=== PATIENT | male | born 1965 | race Caucasian/White ===

== ENCOUNTER → 2023-10-30 08:52 | Outpatient (REF) | payer MEDICARE, MEDICAID, SELFPAY ==
[2023-10-30 09:52] LABS: Blood Urea Nitrogen 48 mg/dl (9-20); Calcium 9.2 mg/dl (8.4-10.2); Carbon Dioxide 24 mmol/L (22-30); Chloride 105 mmol/L (98-107); Glucose 96 mg/dl (70-99); Sodium 140 mmol/L (135-145); eGFR 27.89
== END ==
LOC: REG 08:52
PROVIDERS: ATTENDING PHYSICIAN Specialist; FAMILY PHYSICIAN Family Medicine
DX: N17.9 Acute kidney failure, unspecified (principal)
CPT/HCPCS: 36415; 80048

== ENCOUNTER → 2023-11-06 08:47 | Outpatient (REF) | payer MEDICARE, MEDICAID, SELFPAY ==
[2023-11-06 10:55] LABS: Blood Urea Nitrogen 38 mg/dl (9-20); Calcium 9.4 mg/dl (8.4-10.2); Carbon Dioxide 22 mmol/L (22-30); Chloride 105 mmol/L (98-107); Glucose 104 mg/dl (70-99); Potassium 4.7 mmol/L (3.5-5.1); Sodium 140 mmol/L (135-145); eGFR 26.66
== END ==
LOC: REG 08:47
PROVIDERS: ATTENDING PHYSICIAN Specialist
DX: N26.1 Atrophy of kidney (terminal) (principal)
CPT/HCPCS: 36415; 80048

== ENCOUNTER 2023-11-08 06:00 | Inpatient (IN) | payer MEDICARE, MEDICAID, SELFPAY ==
[2023-11-08] VITALS (15 sets, daily range): BP systolic 105–151; BP diastolic 52–86; PULSE 106; O2SAT 99; BMI 32.5; BMI 34.6
--- NOTE | 2023-11-08 04:10 | ED.GENMED ---
History of Present Illness
<KELVIN Waggoner - Last Filed: 11/08/23 04:30>
General
Chief Complaint: Fever
Source: patient and family
Exam Limitations: none
Time Seen by Provider: 11/08/23 03:29
Nursing documentation reviewed up to this point in time: agreed with
Travel History
Have you had any contact with someone who has COVID-19?: No
Do you have any symptoms of coronavirus? Fever > 100 degrees, chills, cough, shortness of breath, sore throat, loss of taste or smell, muscle aches, or headache?: Yes
Symptoms:: fever, nausea
History of Present Illness
History of Present Illness:
This is a 58 year old male, with a PMH of nephrostomy tubes, who reports to the ED with his father c/o fever x 6 hours. Pt was discharged from the hospital 1 week ago and has been doing fine up until yesterday. Pt's father states patient began
feeling nauseous and bloated yesterday. He has had a lack of appetite and states he feels nauseous every time he tries to eat. Pt's father gave him 3 doses of 'gentle overnight laxative' and pt thereafter had diarrhea 3 times. Pt's father took his
temperature a couple hours ago and got a temperature of 103F. Pt denies any CP, SOB, cough, vomiting, abd pain, hematuria, GORMAN, dizziness, lightheadedness, or swelling in his legs.
Past History
<KELVIN Waggoner - Last Filed: 11/08/23 04:30>
Past History
ED Past Medical History: HTN, Hypercholesterolemia, IDDM and Other (Kidney stones, hypothyroidism, nephrostomy tubes)
ED Past Surgical History: Urological (nephrostomy tube placement)
Patient has exhibited threatening behavior?: No
Social History
Tobacco: Non-smoker
Alcohol: None
Drug: None
Review of Systems
<KELVIN Waggoner - Last Filed: 11/08/23 04:30>
Review of Systems
Allergies reviewed?: Yes
Other source history: family
Constitutional: Reports fever and chills
EENT: Reports no symptoms
Respiratory: Reports no symptoms; Denies cough or trouble breathing
Cardiac: Reports no symptoms; Denies chest pain
ABD/GI: Reports nausea, diarrhea and other (bloated); Denies abdominal pain, vomiting or constipated
: Reports no symptoms; Denies dysuria, flank pain or bleeding
Musculoskeletal: Reports no symptoms
Skin: Reports no symptoms
Neurological: Reports no symptoms; Denies dizzy or headache
Phy Exam
<Av Moran [facility] - Last Filed: 11/08/23 04:30>
General Physical Exam
General Presentation: no apparent distress
General age: appears stated age
General Skin: warm and dry
General Habitus: normal
General Mental: alert
General Hydration: appears well hydrated
ENT Exam
ENT Exam: pharynx normal, neck supple and normocephalic
Cardiovascular Exam
Cardiovascular Exam: regular rate/rhythm, no edema, no murmur and normal peripheral pulses
Heart Sounds: normal
Pulmonary Exam
Pulmonary Exam: lungs clear, no respiratory distress, no rales, no crackles, no rhonchi, no wheezing and no cough
Oxygen Status: room air
Cough: no cough
Gastrointestinal Exam
Gastrointestinal Exam: non tender, soft and abnormal bowel sounds (hyperactive)
External Findings: nephrostomy drain
Palpation: generalized: No tenderness
Auscultation of Abdomen: hyperactive
Neurological Exam
Neurological Exam: alert and oriented x3
Musculoskeletal Exam
Musculoskeletal Exam: full ROM and no edema
Skin Exam
Skin Exam: normal color, warm/dry, no rash and other (no erythema or warmth along surgical sites. no tenderness to palpation along surgical sites.)
Psychiatric Exam
Psychiatric Exam: normal mood/affect
Course
<Av Gardnerisaiah NATHAN - Last Filed: 11/08/23 04:30>
Orders/Labs/Results
Orders:
Orders
11/08/23 04:05
Complete Blood Count/With Diff Urgent
Comprehensive Metabolic Panel Urgent
Lactic Acid Q4H
Comment: ON ICE, CANCEL 2ND ORDER IF FIRST LACTIC ACID LEVEL <2
Urinalysis Reflex To Culture Urgent
Date Specimen was Collected: 11/08/23
Time Specimen was Collected: 03:34
Urine Microscopic Reflex Cult Urgent
Blood Culture Q30M
EDISON Source: Blood/Venous
Specimen Description:
Comment: FROM 2 SEPARATE SITES
Urine Culture Urgent
EDISON Source: U
Specimen Description:
Date Specimen was Collected: 11/08/23
Time Specimen was Collected: 03:34
11/08/23 04:09
Blood Culture Q30M
EDISON Source: Blood/Venous
Specimen Description:
Comment: FROM 2 SEPARATE SITES
11/08/23 04:13
Acetaminophen [Tylenol] 1,000 mg .ROUTE .STK-MED ONE
11/08/23 04:15
Acetaminophen [Tylenol] 1,000 mg PO NOW STA
11/08/23 04:32
0.9% Sodium Chloride 1000 ml [Nss] 1,000 ml IV BOLUS
11/08/23 04:33
CT Abd/pel Without Iv Or Oral Urgent
Comment:
Reason For Exam: Fever, Kidney sones Perc
11/08/23 04:51
Cefepime HCl [Maxipime] 2,000 mg IV NOW STA
Gentamicin Sulfate [Gentamicin] 190 mg 0.9% Sodium Chloride [Nss] 50 ml IV NOW
11/08/23 07:45
Lactic Acid Q4H
Comment: ON ICE, CANCEL 2ND ORDER IF FIRST LACTIC ACID LEVEL <2
Abnormal Lab Results
11/08/23
04:05
WBC 18.1 H 10^3/uL
(4.8-10.8)
RBC 2.94 L 10^6/uL
(4.70-6.10)
Hgb 8.3 L g/dL
(13.0-18.0)
Hct 24.1 L %
(39.0-52.0)
RDW 15.0 H %
(11.5-14.5)
Abs Immat Gran (auto) 0.2 H 10^3/uL
(0-0.05)
Absolute Neuts (auto) 15.0 H 10^3/uL
(1.4-6.5)
Absolute Lymphs (auto) 0.6 L 10^3/uL
(1.2-3.4)
Absolute Monos (auto) 2.2 H 10^3/uL
(0.1-0.6)
Immature Gran % 0.8 H %
(0-0.5)
Neutrophils % 83.0 H %
(42.2-75.2)
Lymphocytes % 3.5 L %
(20.5-51.1)
Monocytes % 12.1 H %
(1.7-9.3)
Sodium 130 L D mmol/L
(135-145)
Carbon Dioxide 18 L mmol/L
(22-30)
BUN 43 H mg/dl
(9-20)
Creatinine 3.5 H mg/dL
(0.7-1.3)
Glucose 130 H mg/dl
(70-99)
Total Bilirubin 1.4 H mg/dl
(0.2-1.3)
Total Protein 6.2 L g/dl
(6.3-8.2)
Albumin 3.3 L g/dl
(3.5-5.0)
Ur Occult Blood Reflex 3+ A
(Negative)
Leukocyte Esterase Rfl 2+ A
(Negative)
Urine Albumin (Reflex) 2+ A
(Neg - Trace)
11/08/23 04:05
11/08/23 04:05
Vital Signs
Initial and Last Documented VS:
Initial Vital Signs
Temp Pulse Resp BP Pulse Ox
101.2 F H 129 24 144/83 99
11/08/23 03:14 11/08/23 03:14 11/08/23 03:14 11/08/23 03:14 11/08/23 03:14
Last Documented Vital Signs
Temp Pulse Resp BP Pulse Ox
102.7 F H 107 20 125/59 96
11/08/23 04:27 11/08/23 04:27 11/08/23 04:27 11/08/23 04:27 11/08/23 04:27
<Nakul Smith, DO - Last Filed: 11/08/23 04:59>
Orders/Labs/Results
Orders:
Orders
11/08/23 04:05
Complete Blood Count/With Diff Urgent
Comprehensive Metabolic Panel Urgent
Lactic Acid Q4H
Comment: ON ICE, CANCEL 2ND ORDER IF FIRST LACTIC ACID LEVEL <2
Urinalysis Reflex To Culture Urgent
Date Specimen was Collected: 11/08/23
Time Specimen was Collected: 03:34
Urine Microscopic Reflex Cult Urgent
Blood Culture Q30M
EDISON Source: Blood/Venous
Specimen Description:
Comment: FROM 2 SEPARATE SITES
Urine Culture Urgent
EDISON Source: U
Specimen Description:
Date Specimen was Collected: 11/08/23
Time Specimen was Collected: 03:34
11/08/23 04:09
Blood Culture Q30M
EDISON Source: Blood/Venous
Specimen Description:
Comment: FROM 2 SEPARATE SITES
02/09/24 04:13
Acetaminophen [Tylenol] 1,000 mg .ROUTE .STK-MED ONE
11/08/23 04:15
Acetaminophen [Tylenol] 1,000 mg PO NOW STA
11/08/23 04:32
0.9% Sodium Chloride 1000 ml [Nss] 1,000 ml IV BOLUS
11/08/23 04:33
CT Abd/pel Without Iv Or Oral Urgent
Comment:
Reason For Exam: Fever, Kidney sones Perc
11/08/23 04:51
Cefepime HCl [Maxipime] 2,000 mg IV NOW STA
Gentamicin Sulfate [Gentamicin] 190 mg 0.9% Sodium Chloride [Nss] 50 ml IV NOW
11/08/23 07:45
Lactic Acid Q4H
Comment: ON ICE, CANCEL 2ND ORDER IF FIRST LACTIC ACID LEVEL <2
Abnormal Lab Results
11/08/23
04:05
WBC 18.1 H 10^3/uL
(4.8-10.8)
RBC 2.94 L 10^6/uL
(4.70-6.10)
Hgb 8.3 L g/dL
(13.0-18.0)
Hct 24.1 L %
(39.0-52.0)
RDW 15.0 H %
(11.5-14.5)
Abs Immat Gran (auto) 0.2 H 10^3/uL
(0-0.05)
Absolute Neuts (auto) 15.0 H 10^3/uL
(1.4-6.5)
Absolute Lymphs (auto) 0.6 L 10^3/uL
(1.2-3.4)
Absolute Monos (auto) 2.2 H 10^3/uL
(0.1-0.6)
Immature Gran % 0.8 H %
(0-0.5)
Neutrophils % 83.0 H %
(42.2-75.2)
Lymphocytes % 3.5 L %
(20.5-51.1)
Monocytes % 12.1 H %
(1.7-9.3)
Sodium 130 L D mmol/L
(135-145)
Carbon Dioxide 18 L mmol/L
(22-30)
BUN 43 H mg/dl
(9-20)
Creatinine 3.5 H mg/dL
(0.7-1.3)
Glucose 130 H mg/dl
(70-99)
Total Bilirubin 1.4 H mg/dl
(0.2-1.3)
Total Protein 6.2 L g/dl
(6.3-8.2)
Albumin 3.3 L g/dl
(3.5-5.0)
Ur Occult Blood Reflex 3+ A
(Negative)
Leukocyte Esterase Rfl 2+ A
(Negative)
Urine Albumin (Reflex) 2+ A
(Neg - Trace)
11/08/23 04:05
11/08/23 04:05
Vital Signs
Initial and Last Documented VS:
Initial Vital Signs
Temp Pulse Resp BP Pulse Ox
101.2 F H 129 24 144/83 99
11/08/23 03:14 11/08/23 03:14 11/08/23 03:14 11/08/23 03:14 11/08/23 03:14
Last Documented Vital Signs
Temp Pulse Resp BP Pulse Ox
102.7 F H 107 20 125/59 96
11/08/23 04:27 11/08/23 04:27 11/08/23 04:27 11/08/23 04:27 11/08/23 04:27
<Nakul Smith, DO - Last Filed: 11/08/23 04:59>
*Critical Care Note
Total Time (30-74mins, 75-104mins- exclusive of procedures): 30
comment:
Critical care statement: A total of 30 minutes of critical care time was provided for this patient. This time is separate from time utilized to perform the aforementioned documented procedures. Aggregate critical care time includes only time
during which I was engaged in work directly related to the patient's care, as described above, whether at the bedside or elsewhere in the Emergency Department.
ED Attending Note
<KELVIN Waggoner - Last Filed: 11/08/23 04:30>
-
Portions of this chart may have been created with voice recognition software.� Occasional wrong word or��sound alike� substitutions may have occurred due to the inherent limitations of voice recognition software.
<Nakul Smith DO - Last Filed: 11/08/23 04:59>
ED Attending Note
Patient seen and examined by attending physician: Yes
I performed the substantive portion of visit, reviewed & personally made and approve the management plan that is documented in note by myself or BAUDILIO.: Yes
ED Attending Note:
Pleasant 58-year-old male presents with fever for the last 6 hours. He is accompanied by his father. Patient is discharged from the hospital 1 week ago after having percutaneous nephrostomy tube. Today he has reported increased weakness with
nausea and decreased appetite. Patient did have a laxative prior to coming in but patient had diarrhea 3 times since then. Tmax at home was 103 �F. Patient was seen in conjunction with the PA student. I have reviewed and agree with the history
and treatment plan presented. On my independent physical exam, patient is awake, alert, and oriented x3, at baseline according to dad. Heart is regular tachycardic rate, regular rhythm. Lungs clear to auscultation bilaterally abdomen is soft and
nontender. He is febrile.
I spoke with Dr. Isaacs as to recommended CT scan noncontrast of the abdomen pelvis, antibiotics after urine and blood cultures, admission to the hospitalist service. Patient and father are in agreement.
Discharge Plan
Departure
Patient Disposition: Admit
Date of Disposition: 11/08/23
Time of Disposition: 04:54
Admit to: Telemetry
Presentation/result/management discussed w/ accepting MD/DO: Hospitalist
Condition: Fair
Discharge Problem:
Fever, Acute hyponatremia, Acute renal failure (ARF)
Prescriptions:
No Action
levothyroxine 25 mcg Tablet
25 mcg PO DAILY AT 0700
atorvastatin 40 mg Tablet
40 mg PO DAILY
acetaminophen 325 mg Tablet
650 mg PO Q6H PRN (Reason: pain)
sodium bicarbonate 650 mg Tablet
650 mg PO TID Qty: 90 3RF
loperamide 2 mg Capsule
2 mg PO Q4H PRN (Reason: diarrhea)
lisinopril 20 mg Tablet
20 mg PO DAILY
ibuprofen 600 mg Tablet
600 mg PO Q8H PRN (Reason: inflammation or fever)
potassium citrate 15 mEq Tablet Extended Release
15 meq PO BID
Referrals:
Ibrahima Eubanks MD [Family Provider] -
Interventions
Interventions:
*Risk Screen - Suicide Last Done: 11/08/23 03:14
*General Assessment Last Done: 11/08/23 03:14
*Neglect/Abuse Screening Last Done: 11/08/23 03:14
ED- Fall Risk Assessment Last Done: 11/08/23 03:14
*ED COVID-19 Vaccine History Last Done: 11/08/23 03:14
ED- Neurological Assessment Last Done: 11/08/23 04:34
ED-Skin Assessment Last Done: 11/08/23 04:34
[2023-11-08] MEDS: TYLENOL 1000 MG PO (04:16)
[2023-11-08 04:20] LABS: Urine Albumin 2+ (Neg - Trace); Urine Bilirubin Negative (Negative); Urine Color Yellow; Urine Glucose Negative (Negative); Urine Ketone Negative (Negative); Urine Leukocyte 2+ (Negative); Urine Nitrite Negative (Negative); Urine Occult Blood 3+ (Negative); Urine Urobilinogen Negative (Neg - 1+)
[2023-11-08 04:21] LABS: % Basophils 0.3 % (0-2); % Eosinophils 0.3 % (0-6); % Immature Granulocytes 0.8 % (0-0.5); % Lymphocytes 3.5 % (20.5-51.1); % Monocytes 12.1 % (1.7-9.3); Absolute Basophils 0.1 10^3/uL (0-0.2); Absolute Eosinophils 0.1 10^3/uL (0-0.7); Absolute Immature Granulocytes 0.2 10^3/uL (0-0.05); Absolute Lymphocytes 0.6 10^3/uL (1.2-3.4); Absolute Monocytes 2.2 10^3/uL (0.1-0.6); Hematocrit 24.1 % (39.0-52.0); Hemoglobin 8.3 g/dL (13.0-18.0); Mean Corp Hgb Conc. 34.4 g/dL (33.0-37.0); Mean Corpuscular Hgb 28.2 pg (27.0-31.0); Mean Platelet Volume 9.7 fL (7.4-10.4); Nucleated Red Blood Cells % 0 % (-); Platelet Count 222 10^3/uL (130-400); Red Blood Cell Count 2.94 10^6/uL (4.70-6.10); White Blood Cell Count 18.1 10^3/uL (4.8-10.8)
[2023-11-08 04:27] LABS: Urine Character Cloudy (Clear)
[2023-11-08 04:35] LABS: Lactic Acid 0.9 mmol/L (0.7-2.0)
[2023-11-08] MEDS: NSS 1000 IV ×4 (04:39→19:28)
[2023-11-08 04:46] LABS: ALT (SGPT) 17 U/L (0-50); AST (SGOT) 17 U/L (17-59); Albumin 3.3 g/dl (3.5-5.0); Alkaline Phosphatase 56 U/L (38-126); Blood Urea Nitrogen 43 mg/dl (9-20); Calcium 8.8 mg/dl (8.4-10.2); Carbon Dioxide 18 mmol/L (22-30); Chloride 99 mmol/L (98-107); Estimated Creatinine Clearance 26 ml/min; Glucose 130 mg/dl (70-99); Potassium 4.1 mmol/L (3.5-5.1); Sodium 130 mmol/L (135-145); Total Bilirubin 1.4 mg/dl (0.2-1.3); Total Protein 6.2 g/dl (6.3-8.2); eGFR 19.52
[2023-11-08 05:05] LABS: Urine Amorphous Seen; Urine Granular Cast >15 /LPF (0); Urine Mucus Many; Urine Squamous Cell >30 /LPF (Few)
[2023-11-08 05:06] LABS: Urine Bacteria Many (Negative); Urine Red Blood Cell >100 /HPF (0-2); Urine White Cell >100 /HPF (0-5)
[2023-11-08] MEDS: MAXIPIME 2000 MG IV (05:09)
[2023-11-08] MEDS: GENTAMICIN 54.75 MG IV (05:49)
--- NOTE | 2023-11-08 05:56 | HPS.HSE ---
Family Physician
-
Family Physician: Ibrahima Eubanks
Chief Complaint
-
Bloating
History of Present Illness
Patient is a 58y M with PMH significant for nephrolithiasis hypothyroidism and recent hospitalization for Urologic procedures who presents to ED complaining of bloating and nausea. History obtained from patient and family at the bedside.
Patient states that he has felt bloated for the past few days. He has had nausea and decreased appetite, but no episodes of emesis. Patient tried taking Mylanta with no relief of his symptoms. He then took an OTC laxative and had loose stools,
but still no improvement in bloated sensation. Patient presented to the ED this evening for evaluation where he is noted to have fever to 102.7.
Patient was recently hospitalized 10/16 - 10/23 secondary to NITA and nephrolithiasis, He underwent multiple procedures during that admission including bilateral PCN tubes and L ureteral stenting.
Patient has maintained R PCN tube to gravity. L PCN tube is capped. He states that he has predominately been passing urine from below.
He denies any hematuria, dysuria. He denies any subjective fevers / chills - though he appears diaphoretic here in the ED.
Medical History
Past Medical History
Past Medical History: Reports Other
Additional Past Medical History:
Nephrolithiasis
Recurrent Hydronephrosis
CKD IV
Chronic Metabolic Acidosis
Anemia of CKD
Hypertension
Cognitive Impairment
Hypothyroidism
Past Surgical History: Reports Other
Additional Past Surgical History:
Multiple Ureteral Stents and Lithotripsy Procedures
Bilateral PCN Placements (09/2023)
Social History
Tobacco: Non-smoker
Alcohol: None
Drug: None
Living: With Family
Family History
Family History: Not pertinent
Allergies / Home Medications
Allergies reflects when Allergies were last updated in [facility].
Home Medications with original date entered in [facility]
Allergy/Medication List:
Allergies
Allergy/AdvReac Type Severity Reaction Status Date / Time
aspartame Allergy Unknown Verified 11/08/23 03:14
caffeine Allergy Unknown Verified 11/08/23 03:14
Home Medications
levothyroxine 25 mcg tablet 25 mcg PO DAILY AT 0700 Thyroid 11/15/22
acetaminophen 325 mg tablet 650 mg PO Q6H PRN pain 10/16/23
atorvastatin 40 mg tablet 40 mg PO DAILY High Cholesterol 10/16/23
sodium bicarbonate 650 mg tablet 650 mg PO TID #90 tabs 10/25/23
ibuprofen 600 mg tablet 600 mg PO Q8H PRN inflammation or fever 11/08/23
lisinopril 20 mg tablet 20 mg PO DAILY 11/08/23
loperamide 2 mg capsule 2 mg PO Q4H PRN diarrhea 11/08/23
potassium citrate 15 mEq (1,620 mg) tablet,extended release 15 meq PO BID 11/08/23
Review of Systems
-
History Source: Patient and Family
Constitutional: Denies Fever, Fatigue or Chills
Respiratory: Denies Cough or Trouble Breathing
Cardiac: Denies Chest Pain or Palpitations
Abdomen/GI: Reports Abdominal Pain, Nausea and Diarrhea; Denies Vomiting, Bloody Stools or Black Stools
: Reports Other (Bilateral PCN in place.); Denies Dysuria, Frequency, Flank Pain, Bleeding, Dark Urine or Discharge
Neurological: Denies Dizzy or Headache
Psych: Denies Depression or Anxiety
Physical Exam
Vital Signs
Vital Signs
Temp Pulse Resp BP Pulse Ox
100.2 F 99 20 115/58 96
11/08/23 05:36 11/08/23 05:36 11/08/23 04:27 11/08/23 05:36 11/08/23 05:36
Physical Exam
General: Other (58y M grossly diaphoretic. )
HEENT: Moist mucous membranes and PERRLA
Respiratory: Clear; No Wheezes, Rales or Rhonchi
Cardiac: S1/S2 and Regular Rhythm; No Murmur
GI: Other (Softly distended, not tender. BS are present but diminished throughout.)
Genito-urinary: Other (Bilateral PCN tubes in place. L is capped. R is to gravity with light yellow urine in device. No surrounding erythema, induration, discharge.)
Neuro: AO x 3
Laboratory Results
-
11/08/23 04:05
11/08/23 04:05
Laboratory Results
Lactic Acid 0.9 mmol/L (0.7-2.0) 11/08/23 04:05
Total Bilirubin 1.4 mg/dl (0.2-1.3) H 11/08/23 04:05
AST 17 U/L (17-59) 11/08/23 04:05
ALT 17 U/L (0-50) 11/08/23 04:05
Alkaline Phosphatase 56 U/L (38-126) 11/08/23 04:05
Impression/Plan
-
A/P: Patient is a 58y M with PMH significant for recurrent nephrolithiasis and hydronephrosis with bilateral PCN tubes who presents to ED c/o bloating and is noted to be febrile and diaphoretic.
UTI / CAUTI
Sepsis secondary to the above
- Admit for further evaluation and treatment.
- Patient presents with fever to 102.7, tachycardia and leukocytosis with suspect source of infection and bilateral PCN catheters in place.
- IV abx with cefepime (renally dosed) for now pending culture data.
- Cultures from prior hospitalization were negative.
- Supportive care including IVFs, antipyretics, etc.
- Urology evaluation for additional recommendations / catheter or stent exchanges, etc.
- Follow for clinical improvement.
Nephrolithiasis
- CT scan done in the ED this AM shows improved hydronephrosis.
- Bilateral PCN in place. L ureteal stent in place.
- Prior R distal ureteral stone is unchanged. New R UPJ stone noted.
- Continue R PCN to gravity.
- Urology evaluation as noted above.
NITA on CKD IV
- SCr = 3.5 compared to recent baseline of around 2.5.
- Recent admission with peak SCr of 7.5 down to 3.5 at discharge.
- IVFs, hold lisinopril.
- Urology eval as noted above.
- Follow for improvement / return to baseline renal function.
Chronic Metabolic Acidosis secondary to CKD
- Stable. Continue bicarbonate supplementation.
Hyponatremia
- Likely secondary to increased ADH states due to pain / nausea / etc.
- IVFs support as noted above. Supportive care.
- Follow for improvement. Check urine studies. Check TFTs.
- Consider Nephrology evaluation if no improvement.
Anemia of CKD
- Anemia seems increased from recent baseline (10 to 8.3).
- No evidence of gross blood loss.
- Follow H&H. Heme test stools.
- Check iron studies and replete if indicated.
Hypothyroidism
- Continue T4 supplementation.
- Check TFTs and adjust replacement if indicated.
DVT Prophylaxis: SCDs
Code Status: Full
[2023-11-08 07:31] LABS: Urine Sodium 48 mmol/L (30-90)
[2023-11-08 08:11] LABS: Osmolality Urine 440 mOsm/kg (300-900)
--- NOTE | 2023-11-08 08:11 | EDRN ---
Patient taken to room 3351 on monitor on stretcher with NSS infusing. Father with patient.
[2023-11-08] MEDS: TYLENOL 650 MG PO ×3 (10:05→20:20)
[2023-11-08] MEDS: SODIUM BICARBONATE 650 MG PO ×3 (10:06→21:02)
[2023-11-08] MEDS: NSS (PRESERVATIVE FREE) 10 ML IV (10:06)
[2023-11-08] MEDS: PROTONIX IV 40 MG IV (10:06)
[2023-11-08] MEDS: SYNTHROID 25 MCG PO (10:06)
--- NOTE | 2023-11-08 10:42 | PTCARENOTE ---
Received patient on admission from ED via stretcher with NSS infusing via gravity tubing; patient pulled over x4 assist. Afebrile on arrival. Dr Brownenes in to see patient and connected L nephrostomy to perkins bag; R nephrostomy tube remains to
drainage bag. L nephrostomy tube then put out 350ml and R 200ml. Patient with full body chills/rigors. T 99.3 max. Tylenol given for generalized aches. Dr Joe up on unit and made aware.
[2023-11-08 10:44] LABS: Iron 25 ug/dl (49-181)
[2023-11-08 10:45] LABS: Lactic Acid 1.5 mmol/L (0.7-2.0)
[2023-11-08 10:53] LABS: Percent Saturation 12 % (20-50); Total Iron Binding Capacity 206 ug/dl (261-462)
--- NOTE | 2023-11-08 10:53 | W.PN.HOSP.TC ---
Today's Communication/Plan
-
Continue antibiotics
IV fluids
Await cultures
Assessment / Plan
Assessment / Plan
Gen-AAOx3, NAD, obese
HEENT-NC, AT, anicteric, clear oral mm
Neck-supple
CV-reg, no M, +S1/S2
Lungs-clear B/L
Abd-soft, NT, ND
Ext-no edema
Musculoskeletal-no cyanosis, clubbing
Skin-warm and dry
Neuro-grossly non-focal
Psych-calm, cooperative
Sepsis -due to catheter associated urinary tract infection versus nephrolithiasis. Hemodynamically stable. Continue IV fluids, IV antibiotics. Await cultures.
Nephrolithiasis -urology consulted. They recommend conservative management. No plans for procedures. Diet resumed.
CT scan shows improvement in hydronephrosis. Bilateral percutaneous nephrostomies are in place. Left ureteral stent in place. New right UPJ stone noted.
NITA on CKD 4 -he was on ibuprofen at home. Avoid further NSAIDs.
Chronic metabolic acidosis due to CKD -continue sodium bicarbonate orally.
Hyponatremia -sodium 130. Urine studies consistent with excess ADH. Fluid restriction ordered.
Hypothyroidism -continue Synthroid. TSH pending.
Chronic anemia, normocytic -hemoglobin 8.3 this morning. No evidence of bleeding. Will monitor for now. Percentage iron saturation noted to be 12%. Check other anemia labs.
Hyperlipidemia -continue atorvastatin.
Obesity due to excess calories
Full code
PT/OT -patient lives alone. Has aides that help him with daily activities.
Anticipated Discharge: > 48 hours
Subjective/Interval History
-
Date of Service: November 08, 2023
Patient seen and examined. No complaints.
Objective Data
-
Labs:
Laboratory Results
11/08/23
04:05
WBC 18.1 H
Hgb 8.3 L
Hct 24.1 L
Plt Count 222
Sodium 130 L D
Potassium 4.1
Chloride 99
Carbon Dioxide 18 L
BUN 43 H
Creatinine 3.5 H
Glucose 130 H
Calcium 8.8
Total Bilirubin 1.4 H
AST 17
ALT 17
Alkaline Phosphatase 56
Vital Signs:
Vital Signs
Temp Pulse Resp BP Pulse Ox
99.4 F 110 23 151/76 100
11/08/23 10:21 11/08/23 10:24 11/08/23 10:24 11/08/23 10:24 11/08/23 09:45
I&O
11/07/23 11/08/23 11/09/23
06:59 06:59 06:59
Intake Total 1000 / 1000
Output Total 100 / 100 550 / 550
Balance 900 / 900 -550 / -550
Review of Systems
-
History Source: Patient
All other systems: Reviewed and negative
[2023-11-08] MEDS: ZOFRAN 4 MG IV (10:56)
--- NOTE | 2023-11-08 11:04 | W.PN.URO.CBU ---
Today's Communication / Plan
-
Await blood and urine cultures
Antibiotics per Hospitalists
Follow renal function
Left PCN returned to gravity drainage
Assessment / Plan
-
Probable complicated UTI
NITA
Bilateral nephrolithiasis: large right renal stone has migrated into the right proximal ureter: 11/08/23 CT scan personally reviewed
Diagnosis
-
Date of Service: November 08, 2023
-
Patient Diagnosis:
Struvite and CaP04 nephrolithiasis
Renal insufficiency. Recent history of acute renal failure
Patient first underwent urgent stone intervention 1 year ago
He is most recently s/p left PCNL 10/17/23 followed roughly a week later by placement of a right PCN
---
He is scheduled for completion left nephrolitomy and right ureteroscopy 11/14/23
He presented early 11/08/23 due to fever/chills and flu-like symptoms
Subjective
-
Comfortable
Offers no complaints
Objective
-
Vital Signs
Temp Pulse Resp BP Pulse Ox
99.4 F 110 23 151/76 100
11/08/23 10:21 11/08/23 10:24 11/08/23 10:24 11/08/23 10:24 11/08/23 09:45
Intake and Output
11/07/23 11/08/23 11/09/23
06:59 06:59 06:59
Intake Total 1000 / 1000
Output Total 100 / 100 550 / 550
Balance 900 / 900 -550 / -550
Intake:
IV fluids (Total) 1000 / 1000
NS 1000 / 1000
Output:
Urinary Drain Output (Total) 550 / 550
Left Nephrostomy 350 / 350
Right Nephrostomy 200 / 200
Suprapubic output 100 / 100
Laboratory Results
11/08/23 04:05
11/08/23 04:05
Review of Systems
-
Constitutional: Fever and Chills
Respiratory: No Symptoms
Cardiac: No Symptoms
Abdomen/GI: No Symptoms
Physical Exam
-
General - well nourished, no acute distress
Abdomen - soft, non-tender, no CVAT, right PCN draining clear urine, Left PCN plugged
Genitalia - normal
[2023-11-08 11:22] LABS: TSH Reflex To Free T4 1.41 uIU/ml (0.47-4.68)
--- NOTE | 2023-11-08 11:52 | PTCARENOTE ---
T 103 orally. Lactic 0.[address] Joe made aware via tiger text; cooling blanket ordered. This nurse contacted central supply to request blanket be brought to unit as soon as possible.
--- NOTE | 2023-11-08 14:31 | PTCARENOTE ---
Temp has not gone down despite po tylenol. T 103-104, patient continues with rigors. Notified Dr Joe via tiger text who instructed to give next dose of po tylenol. Patient's father at the bedside and requested Dr Acharya be made aware. This nurse
sent tiger text to Dr Acharya who instructed, via tiger text, to let father know that patient will probably spike fevers on and off for the next few days, but each day that fever max should be a bit less severe. The antibiotics will begin to have an
effect in the next 24hrs. This is not unexpected. This nurse informed patient's father. Dr Joe then came to unit to see patient and spoke with both him and patient's father. No further orders given at this time. Also reviewed with Sharona Isaacs,
nurse senior logistics manager.
--- NOTE | 2023-11-08 14:58 | CON.ID ---
Consultation
-
Date/Time Consultation Requested: 11/08/23 14:29
Date/Time Consultation Performed: 11/08/23 15:00
Requesting Provider: Dr Joe
Performing Provider: Dr Barton
Reason for Consultation: fever
Chief Complaint / Past History
Chief Complaint
bloating
History of Present Illness
Mr Irwin is a 58 year old male with history of bilateral nephrostomy tubes for renal stones; R pcn to gravity and L was recently capped. Patient arrived complaining of bloating, nausea, malaise, poor appetite. Tried laxative without improvement.
Then developed fevers to 102 at home and presented here.
Since arrival here he has been febrile to 104.1 (rectally) and have been placed on a cooling blanket, bp stable, HR 117, wbc 18 on arrival, hgb 8.3, plt 22, a left shift is noted, na 130, cr 3.5 from previous kobi of 2.7, urine from the right side
with gross pyuria and many bacteria, CT a/p without contrast: large R UPJ stone, L PCN tube and R PCN tube, small L renal calculi, right urine culture in progress, blood cultures x2 in progress, preivious urine cultures last month with no growth,
patient had a dose of gentamicin and is currently on cefepime, seen by urolgoy and L PCN tube was put to a perkins bag, ID is consulted for fevers.
Past History
Additional Past Medical History:
Nephrolithiasis
Recurrent Hydronephrosis
CKD IV
Chronic Metabolic Acidosis
Anemia of CKD
Hypertension
Cognitive Impairment
Hypothyroidism
Additional Past Surgical History:
Multiple Ureteral Stents and Lithotripsy Procedures
Bilateral PCN Placements (09/2023)
Allergy History:
aspartame Allergy (Verified 11/08/23 03:14)
Unknown
caffeine Allergy (Verified 11/08/23 03:14)
Unknown
Medications Reviewed: Yes
Social History
Tobacco: Non-Smoker
Alcohol: None
Drug: None
Family History
Family History: Not Pertinent
Review of Systems
Review of Systems
General: Fever and Chills
All systems: All other systems were reviewed and were negative
Vital Signs
Temp Pulse Resp BP Pulse Ox
103.0 F H 117 28 134/83 95
11/08/23 13:59 11/08/23 14:00 11/08/23 14:00 11/08/23 14:00 11/08/23 12:19
Physical Exam
Physical Exam
Constitutional: No Acute Distress
Cardiovascular: Regular Rate and S1/S2; Negative Murmur or Rub
Pulmonary: Clear and Symmetric; Negative Wheezes, Rales or Rhonchi
Gastrointestinal: Soft, Non Tender, Non Distended and Normal Bowel Sounds
Genito-Urinary: Clear Urine (both tubes); Negative Suprapubic Tenderness or CVA Tenderness
Skin: Warm and Dry; Negative Rash or Jaundice
Lab / Diagnostic Study Results
11/08/23 04:05
11/08/23 04:05
Abs Immat Gran (auto) 0.2 10^3/uL (0-0.05) H 11/08/23 04:05
Absolute Neuts (auto) 15.0 10^3/uL (1.4-6.5) H 11/08/23 04:05
Absolute Lymphs (auto) 0.6 10^3/uL (1.2-3.4) L 11/08/23 04:05
Absolute Monos (auto) 2.2 10^3/uL (0.1-0.6) H 11/08/23 04:05
Absolute Basos (auto) 0.1 10^3/uL (0-0.2) 11/08/23 04:05
Immature Gran % 0.8 % (0-0.5) H 11/08/23 04:05
Neutrophils % 83.0 % (42.2-75.2) H 11/08/23 04:05
Lymphocytes % 3.5 % (20.5-51.1) L 11/08/23 04:05
Monocytes % 12.1 % (1.7-9.3) H 11/08/23 04:05
Eosinophils % 0.3 % (0-6) 11/08/23 04:05
Basophils % 0.3 % (0-2) 11/08/23 04:05
Lactic Acid 1.5 mmol/L (0.7-2.0) 11/08/23 10:22
Ur Squamous Epith Cells >30 /LPF (Few) 11/08/23 04:05
Microbiology Results
Micro:
11/08/23 04:05 Blood Culture - Pending
Blood/Venous
11/08/23 04:05 Urine Culture - Pending
Urine
11/08/23 04:09 Blood Culture - Pending
Blood/Venous
Assessment / Plan
Complicated UTI
Bilateral PCN tubes with proximal obstruction of the R side, L tube distal portion likely nonfunctional
Fevers
- Right sided ua with gross pyuria - urine culture in progress
- send ua and culture from the L side as well please
- blood cultures x2
- no need for cooling blanket in my opinion and would also stop rectal Ts
- agree with cefepime
- follow clinically
--- NOTE | 2023-11-08 15:42 | PTCARENOTE ---
Addendum entered by Evelyn Renae RN 11/08/23 16:59:
Urine obtained from L nephrostomy and sent to lab, as per Dr Barton.
Original Note:
Dr Barton in to see patient; instructed to turn off cooling blanket and do oral temps only. Father at the bedside. t102.9.
[2023-11-08 15:46] LABS: Urine Albumin 3+ (Neg - Trace); Urine Bilirubin Negative (Negative); Urine Character Slightly Cloudy (Clear); Urine Color Yellow; Urine Glucose Negative (Negative); Urine Ketone Negative (Negative); Urine Leukocyte 2+ (Negative); Urine Nitrite Negative (Negative); Urine Occult Blood 3+ (Negative); Urine Urobilinogen Negative (Neg - 1+)
[2023-11-08 15:53] LABS: Urine Bacteria Moderate (Negative); Urine Red Blood Cell 26-30 /HPF (0-2)
--- NOTE | 2023-11-08 17:23 | CM ---
Patient with Hx developmental delay, Bilateral PCNs with Dx sepsis, nephrolithiasis. Room air. Receiving IVF, IV Abx.
Spoke with patient who resides alone in a first floor condo.
He has been independent in ADLs and ambulation.
The patient works but does not drive.
The patient has no DME.
He had [facility] ordered during his prior admission but says he did not qualify as he was not home bound and he returned to work.
No prior SNF.
PCP - Ibrahima Eubanks
Pharmacy - [facility]
The patient says he may go to his father's place to stay for a while when he is discharged- his father lives at [facility].
No CM d/c needs identified.
Plan home.
[2023-11-09] VITALS (9 sets, daily range): BP systolic 97–133; BP diastolic 54–82; BMI 35.6
[2023-11-09] MEDS: TYLENOL 650 MG PO ×3 (00:22→15:40)
--- NOTE | 2023-11-09 02:28 | PTCARENOTE ---
Pt has fevers through the night, PRN Tylenol given. Pt had no complaints, not sure if Pt would voice complaint is he did have one. Other vitals stable at this time. Assessment care and vitals as charted.
[2023-11-09] MEDS: NSS 1000 IV ×2 (04:53→13:18)
[2023-11-09] MEDS: STERILE WATER FOR INJECTION 10 ML IV (05:01)
[2023-11-09] MEDS: MAXIPIME 2000 MG IV (05:02)
[2023-11-09] MEDS: SYNTHROID 25 MCG PO (05:02)
[2023-11-09 05:34] LABS: Hematocrit 24.5 % (39.0-52.0); Hemoglobin 8.1 g/dL (13.0-18.0); Mean Corp Hgb Conc. 33.1 g/dL (33.0-37.0); Mean Corpuscular Hgb 28.1 pg (27.0-31.0); Mean Corpuscular Volume 85.1 fL (80.0-94.0); Mean Platelet Volume 9.9 fL (7.4-10.4); Platelet Count 192 10^3/uL (130-400); Red Blood Cell Count 2.88 10^6/uL (4.70-6.10)
[2023-11-09 05:52] LABS: Blood Urea Nitrogen 43 mg/dl (9-20); Calcium 8.7 mg/dl (8.4-10.2); Carbon Dioxide 19 mmol/L (22-30); Chloride 104 mmol/L (98-107); Estimated Creatinine Clearance 27 ml/min; Glucose 106 mg/dl (70-99); Magnesium 1.8 mg/dl (1.6-2.3); Potassium 4.2 mmol/L (3.5-5.1); Sodium 134 mmol/L (135-145); eGFR 20.21
[2023-11-09] MEDS: SODIUM BICARBONATE 1300 MG PO ×3 (08:58→21:15)
[2023-11-09] MEDS: PROTONIX IV 40 MG IV (08:58)
[2023-11-09] MEDS: NSS (PRESERVATIVE FREE) 10 ML IV (08:58)
--- NOTE | 2023-11-09 09:00 | W.PN.HOSP.TC ---
Today's Communication/Plan
-
Continue antibiotics
Assessment / Plan
Assessment / Plan
Gen-AAOx3, NAD, obese
HEENT-NC, AT, anicteric, clear oral mm
Neck-supple
CV-reg, no M, +S1/S2
Lungs-clear B/L
Abd-soft, NT, ND
Ext-no edema
Musculoskeletal-no cyanosis, clubbing
Skin-warm and dry
Neuro-grossly non-focal
Psych-calm, cooperative
Sepsis -due to catheter associated urinary tract infection versus nephrolithiasis. Hemodynamically stable. Continue IV fluids, IV antibiotics. Blood cultures negative so far, urine culture pending. WBCs trending down. Still with low-grade fever
this morning.
Nephrolithiasis -urology consulted. They recommend conservative management. No plans for procedures. Diet resumed.
CT scan shows improvement in hydronephrosis. Bilateral percutaneous nephrostomies are in place. Left ureteral stent in place. New right UPJ stone noted.
NITA on CKD 4 -he was on ibuprofen at home. Avoid further NSAIDs. Creatinine 3.4 today, monitor.
Chronic metabolic acidosis due to CKD -continue sodium bicarbonate orally.
Hyponatremia -sodium 134, improving. Urine studies consistent with excess ADH. Fluid restriction ordered.
Hypothyroidism -continue Synthroid. TSH normal.
Chronic anemia, normocytic -hemoglobin 8.1 this morning, stable. No evidence of bleeding. Will monitor for now. Percentage iron saturation noted to be 12%. Check other anemia labs.
Hyperlipidemia -continue atorvastatin.
Obesity due to excess calories
Full code
PT/OT -Home health recommended.
Anticipated Discharge: > 48 hours
Subjective/Interval History
-
Date of Service: November 09, 2023
Patient seen and examined. Feels fine. No complaints.
Objective Data
-
Labs:
Laboratory Results
11/09/23
05:07
WBC 12.0 H
Hgb 8.1 L
Hct 24.5 L
Plt Count 192
Sodium 134 L
Potassium 4.2
Chloride 104
Carbon Dioxide 19 L
BUN 43 H
Creatinine 3.4 H
Glucose 106 H
Calcium 8.7
Vital Signs:
Vital Signs
Temp Pulse Resp BP Pulse Ox
100.2 F 87 15 133/64 97
11/09/23 07:22 11/09/23 06:00 11/09/23 06:00 11/09/23 06:00 11/09/23 06:00
I&O
11/08/23 11/09/23 11/10/23
06:59 06:59 06:59
Intake Total 1000 / 1000 1690 / 1690
Output Total 100 / 100 3000 / 3000
Balance 900 / 900 -1310 / -1310
Review of Systems
-
History Source: Patient
All other systems: Reviewed and negative
[2023-11-09] MEDS: SODIUM BICARBONATE PO (09:04)
--- NOTE | 2023-11-09 11:03 | W.PN.ID1 ---
Date of Service
Date of Service: November 09, 2023
Today's Communication
continue cefepime
Assessment / Plan
Complicated UTI
Bilateral PCN tubes with proximal obstruction of the R side, L tube distal portion likely nonfunctional
NITA on CKD4
Fevers
- Right sided ua with gross pyuria - urine culture in progress (11/07 sample)
- Left sided ua - mild pyuria - urine culture in progress (11/08 sample)
- blood cultures x2 no growth
- agree with cefepime
- follow clinically
Chief Complaint
-: Fever and UTI
Subjective / Review of Systems
febrile overnight - now improving
BP stable
improved leukocytosis
Cr remains 3.4
urine cultures both pending
no suprapubic or flank tenderenss
Vital Signs / Physical Exam
Vital Signs
Vital Signs
Temp Pulse Resp BP Pulse Ox
100.2 F 87 15 133/64 98
11/09/23 07:22 11/09/23 06:00 11/09/23 06:00 11/09/23 06:00 11/09/23 10:53
Physical Exam
Constitutional: No Acute Distress and Chronically Ill
Cardiovascular: Regular Rate and S1/S2; Negative Murmur or Rub
Pulmonary: Clear and Symmetric; Negative Wheezes or Rales
Gastrointestinal: Soft, Non Tender, Non Distended and Normal Bowel Sounds
Genito-Urinary: Negative Suprapubic Tenderness
Skin: Warm and Dry; Negative Rash or Jaundice
Neurological: Awake and Alert
Objective Data
Lab Data
Lab Results
11/09/23 05:07
11/09/23 05:07
Estimated Creat Clear 27 ml/min 11/09/23 05:07
Lactic Acid 1.5 mmol/L (0.7-2.0) 11/08/23 10:22
Total Bilirubin 1.4 mg/dl (0.2-1.3) H 11/08/23 04:05
AST 17 U/L (17-59) 11/08/23 04:05
ALT 17 U/L (0-50) 11/08/23 04:05
Alkaline Phosphatase 56 U/L (38-126) 11/08/23 04:05
Most recent labs reviewed.
Micro Results:
11/08/23 15:35 Urine Culture - Pending
Urine
11/08/23 04:09 Blood Culture - Preliminary
Blood/Venous No Growth in 24 hours- Final report to follow
11/08/23 04:05 Blood Culture - Preliminary
Blood/Venous No Growth in 24 hours- Final report to follow
11/08/23 04:05 Urine Culture - Pending
Urine
--- NOTE | 2023-11-09 12:57 | W.PN.URO.CBU ---
Today's Communication / Plan
-
no gu changes consiering surgery later this week as stabilizes
Assessment / Plan
-
Probable complicated UTI
NITA
Bilateral nephrolithiasis: large right renal stone has migrated into the right proximal ureter: 11/08/23 CT scan personally reviewed for surgery this week as stabilizes
Diagnosis
-
Date of Service: November 09, 2023
-
Patient Diagnosis:
Post Op Day:
Patient Diagnosis:
Struvite and CaP04 nephrolithiasis
Renal insufficiency. Recent history of acute renal failure
Patient first underwent urgent stone intervention 1 year ago
He is most recently s/p left PCNL 10/17/23 followed roughly a week later by placement of a right PCN
---
He is scheduled for completion left nephrolitomy and right ureteroscopy 11/14/23
He presented early 11/08/23 due to fever/chills and flu-like symptoms
Subjective
-
no new gu compolaits await definitive surgery
Objective
-
Vital Signs
Temp Pulse Resp BP Pulse Ox
100.2 F 94 19 125/82 98
11/09/23 07:22 11/09/23 12:00 11/09/23 08:00 11/09/23 10:00 11/09/23 12:00
Intake and Output
11/08/23 11/09/23 11/10/23
06:59 06:59 06:59
Intake Total 1000 / 1000 1690 / 1690
Output Total 100 / 100 3000 / 3000
Balance 900 / 900 -1310 / -1310
Intake:
Oral fluids 480 / 480
IV fluids (Total) 1000 / 1000 1200 / 1200
NS 1000 / 1000
IV piggybacks
Output:
Urinary Drain Output (Total) 3000 / 3000
Left Nephrostomy 1750 / 1750
Right Nephrostomy 1250 / 1250
Suprapubic output 100 / 100
Laboratory Results
11/09/23 05:07
11/09/23 05:07
Review of Systems
-
: Flank Pain
Physical Exam
-
General - well developed, well nourished, no acute distress
Chest - clear bilaterally
Abdomen - soft, non-tender, positive bowel sounds, no CVAT, no incisional pain or distention
Genitalia - normal
Rectal - normal
Skin - warm & dry with no rash
Neuro - AOx3, no motor deficits
Extremities - no clubbing, no cyanosis, no edema
Incision - clean, dry
Dressing - clean, dry, intact
Counseling
-
no gu intervention until later in week
--- NOTE | 2023-11-09 15:46 | PTCARENOTE ---
Pt dowgraded to med surg. Report to receiving RN. Medicated with PRN Tylenol for fever. Belongings collected from room. Transferred to [facility] via wheelchair.
[2023-11-10] MEDS: STERILE WATER FOR INJECTION 10 ML IV (05:40)
[2023-11-10] MEDS: SYNTHROID 25 MCG PO (05:40)
[2023-11-10] MEDS: MAXIPIME 2000 MG IV (05:40)
[2023-11-10 05:55] LABS: % Basophils 0.7 % (0-2); % Eosinophils 2.1 % (0-6); % Immature Granulocytes 0.4 % (0-0.5); % Lymphocytes 11.9 % (20.5-51.1); % Monocytes 14.7 % (1.7-9.3); % Neutrophils 70.2 % (42.2-75.2); Absolute Basophils 0.1 10^3/uL (0-0.2); Absolute Eosinophils 0.2 10^3/uL (0-0.7); Absolute Lymphocytes 0.9 10^3/uL (1.2-3.4); Absolute Monocytes 1.1 10^3/uL (0.1-0.6); Absolute Neutrophils 5.1 10^3/uL (1.4-6.5); Hemoglobin 7.5 g/dL (13.0-18.0); Mean Corp Hgb Conc. 34.1 g/dL (33.0-37.0); Mean Corpuscular Hgb 28.5 pg (27.0-31.0); Mean Corpuscular Volume 83.7 fL (80.0-94.0); Mean Platelet Volume 9.6 fL (7.4-10.4); Nucleated Red Blood Cells % 0 % (-); Platelet Count 193 10^3/uL (130-400); Red Blood Cell Count 2.63 10^6/uL (4.70-6.10); Red Cell Dist. Width 14.9 % (11.5-14.5); White Blood Cell Count 7.2 10^3/uL (4.8-10.8)
[2023-11-10 06:00] VITALS: BMI 34.1
[2023-11-10 06:19] LABS: Blood Urea Nitrogen 43 mg/dl (9-20); Calcium 8.5 mg/dl (8.4-10.2); Carbon Dioxide 19 mmol/L (22-30); Chloride 107 mmol/L (98-107); Estimated Creatinine Clearance 30 ml/min; Glucose 95 mg/dl (70-99); Potassium 3.9 mmol/L (3.5-5.1); Sodium 135 mmol/L (135-145); eGFR 23.49
[2023-11-10 07:00] VITALS: BP 133/77
[2023-11-10] MEDS: PROTONIX IV 40 MG IV (09:03)
[2023-11-10] MEDS: SODIUM BICARBONATE 1300 MG PO ×3 (09:03→21:45)
[2023-11-10] MEDS: NSS (PRESERVATIVE FREE) 10 ML IV (09:03)
--- NOTE | 2023-11-10 10:27 | W.PN.HOSP.TC ---
Today's Communication/Plan
-
Continue antibiotics
Check anemia labs
Hemoglobin in the morning
Assessment / Plan
Assessment / Plan
Gen-AAOx3, NAD, obese
HEENT-NC, AT, anicteric, clear oral mm
Neck-supple
CV-reg, no M, +S1/S2
Lungs-clear B/L
Abd-soft, NT, ND
Ext-no edema
Musculoskeletal-no cyanosis, clubbing
Skin-warm and dry
Neuro-grossly non-focal
Psych-calm, cooperative
Sepsis -due to catheter associated urinary tract infection versus nephrolithiasis. Hemodynamically stable. Continue IV antibiotics. Blood cultures negative so far, urine culture shows Enterococcus, gram-negative bacilli. WBCs normalized.
Afebrile today.
Nephrolithiasis -urology consulted. May need surgery when more stable according to urology.
CT scan shows improvement in hydronephrosis. Bilateral percutaneous nephrostomies are in place. Left ureteral stent in place. New right UPJ stone noted.
NITA on CKD 4 -he was on ibuprofen at home. Avoid further NSAIDs. Creatinine improving, 3.0 today, monitor.
Chronic metabolic acidosis due to CKD -continue sodium bicarbonate orally.
Hyponatremia -sodium 135, improving. Urine studies consistent with excess ADH. Fluid restriction ordered.
Hypothyroidism -continue Synthroid. TSH normal.
Acute on chronic anemia, normocytic -hemoglobin 7.5 this morning. No evidence of bleeding. Will monitor for now. Percentage iron saturation noted to be 12%. Check other anemia labs.
Hyperlipidemia -continue atorvastatin.
Obesity due to excess calories
Full code
PT/OT -Home health recommended.
Anticipated Discharge: > 48 hours
Subjective/Interval History
-
Date of Service: November 10, 2023
Patient seen and examined. No complaints. Finished breakfast.
Objective Data
-
Labs:
Laboratory Results
11/10/23
05:32
WBC 7.2
Hgb 7.5 L
Hct 22.0 L
Plt Count 193
Sodium 135
Potassium 3.9
Chloride 107
Carbon Dioxide 19 L
BUN 43 H
Creatinine 3.0 H
Glucose 95
Calcium 8.5
Vital Signs:
Vital Signs
Temp Pulse Resp BP Pulse Ox
98.1 F 84 18 133/77 98
11/10/23 07:00 11/10/23 07:00 11/10/23 07:00 11/10/23 07:00 11/10/23 07:00
I&O
11/09/23 11/10/23 11/11/23
06:59 06:59 06:59
Intake Total 1690 / 1690 1000 / 1000
Output Total 3000 / 3000 3575 / 3575 350 / 350
Balance -1310 / -1310 -2575 / -2575 -350 / -350
Review of Systems
-
History Source: Patient
All other systems: Reviewed and negative
[2023-11-10 10:48] LABS: Reticulocyte Count 0.9 % (0.4-2.8)
[2023-11-10 12:30] LABS: Folate 11.1 ng/ml (2.76-20); Vitamin B12 243 pg/ml (239-931)
--- NOTE | 2023-11-10 13:10 | W.PN.URO.CBU ---
Today's Communication / Plan
-
ureteroscopy lare in week
Assessment / Plan
-
Probable complicated UTI
NITA
Bilateral nephrolithiasis: large right renal stone has migrated into the right proximal ureter: 11/08/23 CT scan personally reviewed for surgery this week as stabilizes
Diagnosis
-
Date of Service: November 10, 2023
-
Patient Diagnosis:
Post Op Day:
Patient Diagnosis:
Post Op Day:
Patient Diagnosis:
Struvite and CaP04 nephrolithiasis
Renal insufficiency. Recent history of acute renal failure
Patient first underwent urgent stone intervention 1 year ago
He is most recently s/p left PCNL 10/17/23 followed roughly a week later by placement of a right PCN
---
He is scheduled for completion left nephrolitomy and right ureteroscopy 11/14/23
He presented early 11/08/23 due to fever/chills and flu-like symptoms
Subjective
-
comfortable
Objective
-
Vital Signs
Temp Pulse Resp BP Pulse Ox
98.1 F 84 18 133/77 98
11/10/23 07:00 11/10/23 07:00 11/10/23 07:00 11/10/23 07:00 11/10/23 07:00
Intake and Output
11/09/23 11/10/23 11/11/23
06:59 06:59 06:59
Intake Total 1690 / 1690 1000 / 1000
Output Total 3000 / 3000 3575 / 3575 350 / 350
Balance -1310 / -1310 -2575 / -2575 -350 / -350
Intake:
Oral fluids 480 / 480 1000 / 1000
IV fluids (Total) 1200 / 1200
IV piggybacks
Output:
Urinary Drain Output (Total) 3000 / 3000 2175 / 2175 350 / 350
Left Nephrostomy 1750 / 1750 750 / 750
Right Nephrostomy 1250 / 1250 1425 / 1425 350 / 350
Urostomy output 1400 / 1400
Laboratory Results
11/10/23 05:32
11/10/23 05:32
Review of Systems
-
: Flank Pain and Dark Urine
Physical Exam
-
General - well developed, well nourished, no acute distress
Chest - clear bilaterally
Abdomen - soft, non-tender, positive bowel sounds, no CVAT, no incisional pain or distention
Genitalia - normal
Rectal - normal
Skin - warm & dry with no rash
Neuro - AOx3, no motor deficits
Extremities - no clubbing, no cyanosis, no edema
Incision - clean, dry
Dressing - clean, dry, intact
Counseling
-
surgery later this week
--- NOTE | 2023-11-10 13:29 | W.PN.ID1 ---
Date of Service
Date of Service: November 10, 2023
Today's Communication
add levofloxacin
continue cefepime
Assessment / Plan
Complicated UTI
Bilateral PCN tubes with proximal obstruction of the R side, L tube distal portion likely nonfunctional
INTA on CKD4
Fevers
- urine culture 100K GNR and 100K e faecalis
- blood cultures x2 no growth
- add levofloxacin - dosed for NITA
- agree with cefepime
- ureteroscopy planned next week
- follow clinically
Chief Complaint
-: Fever and UTI
Subjective / Review of Systems
fever improving
BP stable
resolving leukocytosis
cr improved
crcl 30
blood cultures no growth urine culture GNR and e faecalis
Vital Signs / Physical Exam
Vital Signs
Vital Signs
Temp Pulse Resp BP Pulse Ox
98.1 F 84 18 133/77 98
11/10/23 07:00 11/10/23 07:00 11/10/23 07:00 11/10/23 07:00 11/10/23 07:00
Physical Exam
Constitutional: No Acute Distress
Cardiovascular: Regular Rate and S1/S2; Negative Murmur or Rub
Pulmonary: Clear and Symmetric; Negative Wheezes or Rales
Gastrointestinal: Soft, Non Tender, Non Distended and Normal Bowel Sounds
Genito-Urinary: Negative Suprapubic Tenderness
Skin: Warm and Dry; Negative Rash or Jaundice
Objective Data
Lab Data
Lab Results
11/10/23 05:32
11/10/23 05:32
Estimated Creat Clear 30 ml/min 11/10/23 05:32
Lactic Acid 1.5 mmol/L (0.7-2.0) 11/08/23 10:22
Total Bilirubin 1.4 mg/dl (0.2-1.3) H 11/08/23 04:05
AST 17 U/L (17-59) 11/08/23 04:05
ALT 17 U/L (0-50) 11/08/23 04:05
Alkaline Phosphatase 56 U/L (38-126) 11/08/23 04:05
Most recent labs reviewed.
Micro Results:
11/08/23 15:35 Urine Culture - Preliminary
Urine Enterococcus faecalis
Gram negative bacilli
11/08/23 04:05 Urine Culture - Preliminary
Urine Enterococcus faecalis
Gram negative bacilli
11/08/23 04:09 Blood Culture - Preliminary
Blood/Venous No Growth in 48 hours- Final report to follow
11/08/23 04:05 Blood Culture - Preliminary
Blood/Venous No Growth in 48 hours- Final report to follow
[2023-11-10] MEDS: LEVAQUIN 750 MG PO (14:57)
[2023-11-10] MEDS: VITAMIN B-12 1000 MCG PO (14:57)
[2023-11-10 15:00] VITALS: BP 133/71
[2023-11-10 23:36] VITALS: BP 140/84
[2023-11-11 04:47] VITALS: BMI 33.1
[2023-11-11] MEDS: SYNTHROID 25 MCG PO (05:14)
[2023-11-11] MEDS: STERILE WATER FOR INJECTION 10 ML IV (05:15)
[2023-11-11] MEDS: MAXIPIME 2000 MG IV (05:15)
[2023-11-11 07:33] LABS: % Basophils 0.6 % (0-2); % Eosinophils 3.8 % (0-6); % Immature Granulocytes 0.6 % (0-0.5); % Lymphocytes 18.6 % (20.5-51.1); % Monocytes 9.3 % (1.7-9.3); % Neutrophils 67.1 % (42.2-75.2); Absolute Eosinophils 0.3 10^3/uL (0-0.7); Absolute Lymphocytes 1.3 10^3/uL (1.2-3.4); Absolute Monocytes 0.6 10^3/uL (0.1-0.6); Absolute Neutrophils 4.6 10^3/uL (1.4-6.5); Hemoglobin 8.1 g/dL (13.0-18.0); Mean Corp Hgb Conc. 33.8 g/dL (33.0-37.0); Mean Corpuscular Hgb 28.2 pg (27.0-31.0); Mean Corpuscular Volume 83.6 fL (80.0-94.0); Mean Platelet Volume 9.5 fL (7.4-10.4); Nucleated Red Blood Cells % 0 % (-); Platelet Count 224 10^3/uL (130-400); Red Blood Cell Count 2.87 10^6/uL (4.70-6.10); Red Cell Dist. Width 14.9 % (11.5-14.5); White Blood Cell Count 6.9 10^3/uL (4.8-10.8)
[2023-11-11 07:54] VITALS: BP 148/84
[2023-11-11 07:55] LABS: Blood Urea Nitrogen 44 mg/dl (9-20); Calcium 8.9 mg/dl (8.4-10.2); Carbon Dioxide 20 mmol/L (22-30); Chloride 108 mmol/L (98-107); Estimated Creatinine Clearance 29 ml/min; Glucose 96 mg/dl (70-99); Potassium 3.8 mmol/L (3.5-5.1); Sodium 138 mmol/L (135-145); eGFR 23.49
[2023-11-11] MEDS: SODIUM BICARBONATE 1300 MG PO ×3 (08:53→21:13)
[2023-11-11] MEDS: PROTONIX IV 40 MG IV (08:53)
[2023-11-11] MEDS: VITAMIN B-12 1000 MCG PO (08:53)
[2023-11-11] MEDS: NSS (PRESERVATIVE FREE) 10 ML IV (08:54)
--- NOTE | 2023-11-11 10:26 | W.PN.URO.CBU ---
Today's Communication / Plan
-
uretroscopy lisandror arnie this week
Assessment / Plan
-
Probable complicated UTI
NITA
Bilateral nephrolithiasis: large right renal stone has migrated into the right proximal ureter: 11/08/23 CT scan personally reviewed for surgery this week as stabilizes
Diagnosis
-
Date of Service: November 11, 2023
-
Patient Diagnosis:
Post Op Day:
Patient Diagnosis:
Post Op Day:
Patient Diagnosis:
Post Op Day:
Patient Diagnosis:
Struvite and CaP04 nephrolithiasis
Renal insufficiency. Recent history of acute renal failure
Patient first underwent urgent stone intervention 1 year ago
He is most recently s/p left PCNL 10/17/23 followed roughly a week later by placement of a right PCN
---
He is scheduled for completion left nephrolitomy and right ureteroscopy 11/14/23
He presented early 11/08/23 due to fever/chills and flu-like symptoms
Subjective
-
comfortable awaiting definitive stone procedure
Objective
-
Vital Signs
Temp Pulse Resp BP Pulse Ox
98.1 F 75 16 148/84 98
11/11/23 07:54 11/11/23 07:54 11/11/23 07:54 11/11/23 07:54 11/11/23 07:54
Intake and Output
11/10/23 11/11/23 11/12/23
06:59 06:59 06:59
Intake Total 1000 / 1000 1440 / 1440
Output Total 3575 / 3575 2900 / 2900
Balance -2575 / -2575 -1460 / -1460
Intake:
Oral fluids 1000 / 1000 1440 / 1440
Output:
Urinary Drain Output (Total) 2175 / 2175 2900 / 2900
Left Nephrostomy 750 / 750 1100 / 1100
Right Nephrostomy 1425 / 1425 1800 / 1800
Urostomy output 1400 / 1400
Other:
Number of approximated MODERATE 1
amounts of urine
Laboratory Results
11/11/23 07:09
11/11/23 07:09
Review of Systems
-
: Flank Pain
Physical Exam
-
General - well developed, well nourished, no acute distress
Chest - clear bilaterally
Abdomen - soft, non-tender, positive bowel sounds, no CVAT, no incisional pain or distention
Genitalia - normal
Rectal - normal
Skin - warm & dry with no rash
Neuro - AOx3, no motor deficits
Extremities - no clubbing, no cyanosis, no edema
Incision - clean, dry
Dressing - clean, dry, intact
Counseling
-
stone surgery ater this week
--- NOTE | 2023-11-11 11:11 | W.PN.ID1 ---
Date of Service
Date of Service: November 11, 2023
Today's Communication
- start unasyn, stop levofloxacin/cefepime
Assessment / Plan
Complicated UTI
Bilateral PCN tubes with proximal obstruction of the R side, L tube distal portion likely nonfunctional
NITA on CKD4
Fevers
- urine culture 100K Acinetobacter and 100K e faecalis
- blood cultures x2 no growth
- start unasyn, stop levofloxacin/cefepime
- ureteroscopy planned next week
- follow clinically
Chief Complaint
-: Fever and UTI
Subjective / Review of Systems
fever resolved
bp stable
no leukocytosis or L shift
cr stable
sensi back
Vital Signs / Physical Exam
Vital Signs
Vital Signs
Temp Pulse Resp BP Pulse Ox
98.1 F 75 16 148/84 98
11/11/23 07:54 11/11/23 07:54 11/11/23 07:54 11/11/23 07:54 11/11/23 07:54
Physical Exam
Constitutional: No Acute Distress
Cardiovascular: Regular Rate and S1/S2; Negative Murmur or Rub
Pulmonary: Clear and Symmetric; Negative Wheezes or Rales
Gastrointestinal: Soft, Non Tender, Non Distended and Normal Bowel Sounds
Genito-Urinary: Negative Suprapubic Tenderness or CVA Tenderness
Skin: Warm and Dry; Negative Rash or Jaundice
Objective Data
Lab Data
Lab Results
11/11/23 07:09
11/11/23 07:09
Estimated Creat Clear 29 ml/min 11/11/23 07:09
Lactic Acid 1.5 mmol/L (0.7-2.0) 11/08/23 10:22
Total Bilirubin 1.4 mg/dl (0.2-1.3) H 11/08/23 04:05
AST 17 U/L (17-59) 11/08/23 04:05
ALT 17 U/L (0-50) 11/08/23 04:05
Alkaline Phosphatase 56 U/L (38-126) 11/08/23 04:05
Most recent labs reviewed.
Micro Results:
11/08/23 15:35 Urine Culture - Final
Urine Enterococcus faecalis
Acinet. baumannii/haemolyticus
11/08/23 04:05 Urine Culture - Final
Urine Enterococcus faecalis
Acinet. baumannii/haemolyticus
11/08/23 04:05 Blood Culture - Preliminary
Blood/Venous No Growth in 72 hours- Final report to follow
11/08/23 04:09 Blood Culture - Preliminary
Blood/Venous No Growth in 72 hours- Final report to follow
[2023-11-11] MEDS: MIRALAX 17 GRAMS PO (11:12)
--- NOTE | 2023-11-11 11:34 | PTCARENOTE ---
Talked with provider about patient's constipation, Miralax ordered and administered.
--- NOTE | 2023-11-11 12:13 | CM ---
Patient seen bedside with father, asking for timeline of patient discharge. Per CM conversation with Hospitalist, likely discharge for later in the week. CM will follow up with Hospitalist to provide update to family in regards to discharge. CM will
continue to follow for discharge planning needs.
Plan; home with father temporarily, watch for VN needs.
[2023-11-11] MEDS: UNASYN IV ×2 (12:35→23:00)
--- NOTE | 2023-11-11 13:48 | W.PN.HOSP.TC ---
Today's Communication/Plan
-
continue IV Abx and follow ID/urology recs
Assessment / Plan
Assessment / Plan
Assessment:
Sepsis - due to complicated CAUTI versus nephrolithiasis. Hemodynamically stable. Continue IV Unasyn per ID. Blood cultures negative so far, urine culture shows Enterococcus, Acinetobacter.
Nephrolithiasis - urology consulted. ureteroscopy planned later this week. CT scan shows improvement in hydronephrosis. Bilateral percutaneous nephrostomies are in place. Left ureteral stent in place. New right UPJ stone noted.
NITA on CKD 4 - he was on ibuprofen at home. avoid further NSAIDs. Creatinine improving, 3.0. Baseline is 2.8
Chronic metabolic acidosis due to CKD - continue sodium bicarbonate orally.
Hyponatremia - sodium 138, improving. Urine studies consistent with excess ADH. Fluid restriction ordered.
Hypothyroidism - continue Synthroid. TSH normal.
Acute on chronic anemia, normocytic - hemoglobin 8.1. No signs of bleeding. Low B12 and replacement ordered.
Hyperlipidemia - continue atorvastatin.
Obesity due to excess calories
DVT ppx:
Full code
PT/OT -Home health recommended.
Anticipated Discharge: > 48 hours
Subjective/Interval History
-
Date of Service: November 11, 2023
no new complaints presently
Objective Data
-
Labs:
Laboratory Results
11/11/23
07:09
WBC 6.9
Hgb 8.1 L
Hct 24.0 L
Plt Count 224
Sodium 138
Potassium 3.8
Chloride 108 H
Carbon Dioxide 20 L
BUN 44 H
Creatinine 3.0 H
Glucose 96
Calcium 8.9
Vital Signs:
Vital Signs
Temp Pulse Resp BP Pulse Ox
98.1 F 75 16 148/84 98
11/11/23 07:54 11/11/23 07:54 11/11/23 07:54 11/11/23 07:54 11/11/23 07:54
I&O
11/10/23 11/11/23 11/12/23
06:59 06:59 06:59
Intake Total 1000 / 1000 1440 / 1440
Output Total 3575 / 3575 2900 / 2900
Balance -2575 / -2575 -1460 / -1460
Physical Exam
-
General: No Apparent Distress
HEENT: Normocephalic and Atraumatic
Respiratory: Negative Wheezes or Rales
Cardiac: Regular Rhythm and S1/S2
GI: Soft
Genito-urinary: Nephrostomy Tubes
Musculoskeletal: No Edema
Neuro: AO x 3
Hematologic / Lymphatic: No Lymphadenopathy
Psych: Calm
Data Reviewed
-
Total Time Spent with Patient (in minutes): 47
Labs: Labs Reviewed by me
[2023-11-11 15:12] VITALS: BP 129/77
[2023-11-11] MEDS: SENOKOT-S 1 TABLET PO (21:14)
[2023-11-11 23:20] VITALS: BP 147/80
[2023-11-12 03:59] VITALS: BMI 33.5
[2023-11-12] MEDS: SYNTHROID 25 MCG PO (05:39)
[2023-11-12 07:00] VITALS: BP 131/77
[2023-11-12 07:06] LABS: % Basophils 0.7 % (0-2); % Eosinophils 5.5 % (0-6); % Immature Granulocytes 0.9 % (0-0.5); % Lymphocytes 18.6 % (20.5-51.1); % Monocytes 6.6 % (1.7-9.3); % Neutrophils 67.7 % (42.2-75.2); Absolute Basophils 0.1 10^3/uL (0-0.2); Absolute Eosinophils 0.4 10^3/uL (0-0.7); Absolute Immature Granulocytes 0.1 10^3/uL (0-0.05); Absolute Lymphocytes 1.3 10^3/uL (1.2-3.4); Absolute Monocytes 0.5 10^3/uL (0.1-0.6); Absolute Neutrophils 4.7 10^3/uL (1.4-6.5); Hematocrit 24.8 % (39.0-52.0); Hemoglobin 8.2 g/dL (13.0-18.0); Mean Corp Hgb Conc. 33.1 g/dL (33.0-37.0); Mean Corpuscular Hgb 27.8 pg (27.0-31.0); Mean Corpuscular Volume 84.1 fL (80.0-94.0); Nucleated Red Blood Cells % 0 % (-); Platelet Count 261 10^3/uL (130-400); Red Blood Cell Count 2.95 10^6/uL (4.70-6.10); Red Cell Dist. Width 14.9 % (11.5-14.5); White Blood Cell Count 6.9 10^3/uL (4.8-10.8)
[2023-11-12 07:15] LABS: Blood Urea Nitrogen 42 mg/dl (9-20); Calcium 8.9 mg/dl (8.4-10.2); Carbon Dioxide 21 mmol/L (22-30); Chloride 109 mmol/L (98-107); Estimated Creatinine Clearance 30 ml/min; Glucose 95 mg/dl (70-99); Potassium 3.9 mmol/L (3.5-5.1); Sodium 141 mmol/L (135-145); eGFR 24.46
[2023-11-12] MEDS: SYNTHROID PO (09:25)
[2023-11-12] MEDS: SODIUM BICARBONATE 1300 MG PO ×3 (09:25→20:39)
[2023-11-12] MEDS: MIRALAX 17 GRAMS PO (09:25)
[2023-11-12] MEDS: PROTONIX 40 MG PO (09:25)
[2023-11-12] MEDS: SENOKOT-S 1 TABLET PO (09:25)
[2023-11-12] MEDS: VITAMIN B-12 1000 MCG PO (09:26)
--- NOTE | 2023-11-12 10:22 | W.PN.URO.CBU ---
Today's Communication / Plan
-
Continue antibiotics
Keep bilateral nephrostomy tubes to gravity drainage
OR 11/14/23 for removal of remaining left renal calculi and attempt to clear large left ureteral stone burden
Assessment / Plan
-
Complicated UTI w/o bacteremia
Bilateral nephrolithiasis: large right renal stone has migrated into the right proximal ureter: 11/08/23 CT scan personally reviewed
Renal insufficiency
Diagnosis
-
Date of Service: November 12, 2023
-
Patient Diagnosis:
Struvite and CaP04 nephrolithiasis
Renal insufficiency. Recent history of acute renal failure
Patient first underwent urgent stone intervention 1 year ago
He is most recently s/p left PCNL 10/17/23 followed roughly a week later by placement of a right PCN
---
He is scheduled for completion left nephrolitomy and right ureteroscopy 11/14/23
He presented early 11/08/23 due to fever/chills and flu-like symptoms: he has a complicated Enterobacter and Acinetobacter UTI
No evidence of bacteremia
Subjective
-
Comfortable
Offers no complaints
Objective
-
Vital Signs
Temp Pulse Resp BP Pulse Ox
98.1 F 74 18 131/77 99
11/12/23 07:00 11/12/23 07:00 11/12/23 07:00 11/12/23 07:00 11/12/23 07:00
Intake and Output
11/11/23 11/12/23 11/13/23
06:59 06:59 06:59
Intake Total 1440 / 1440 1110 / 1110
Output Total 2900 / 2900 2975 / 2975
Balance -1460 / -1460 -1865 / -1865
Intake:
Oral fluids 1440 / 1440 960 / 960
IV fluids (Total) 30 / 30
IV piggybacks 120 / 120
Output:
Urinary Drain Output (Total) 2900 / 2900 2975 / 2975
Left Nephrostomy 1100 / 1100 1025 / 1025
Right Nephrostomy 1800 / 1800 1950 / 1949
Other:
Number of approximated MODERATE 1
amounts of urine
Laboratory Results
11/12/23 06:42
11/12/23 06:42
Review of Systems
-
Constitutional: No Symptoms
Respiratory: No Symptoms
Abdomen/GI: No Symptoms
Musculoskeletal: No Symptoms
Physical Exam
-
Abdomen - soft, non-tender, no CVAT or distention, left PCN draining cloudy urine, right PCN draining clear urine
Genitalia - normal
Skin - warm & dry with no rash
[2023-11-12] MEDS: UNASYN IV ×2 (11:19→23:18)
--- NOTE | 2023-11-12 13:31 | CM ---
Patient seen bedside, reports no new concerns at this time. CM spoke with patients father, Palak, discussed recommendation of Home Health. Per Palak, patient would like to return to work and understands that [facility] can not accept patient if he is working.
Per Palak, patient has done a good job of caring for his tubes in the past. Patient scheduled for OR 11/14. Palak reports patient will stay with him for a few nights once patient is discharged. CM will continue to follow for discharge planning needs.
Plan'; home with father, continue to offer [facility]
[2023-11-12 15:15] VITALS: BP 124/67
--- NOTE | 2023-11-12 15:29 | W.PN.ID1 ---
Date of Service
Date of Service: November 12, 2023
Today's Communication
continue unasyn
Assessment / Plan
Complicated UTI
Bilateral PCN tubes with proximal obstruction of the R side, L tube distal portion likely nonfunctional
NITA on CKD4
Fevers
- urine culture 100K Acinetobacter and 100K e faecalis
- blood cultures x2 no growth
- continue unasyn
- ureteroscopy planned next week
- follow clinically
Chief Complaint
-: Fever and UTI
Subjective / Review of Systems
afebrile
bp stable
tolerating current therapies
for stone removal 11/14
Vital Signs / Physical Exam
Vital Signs
Vital Signs
Temp Pulse Resp BP Pulse Ox
98.1 F 74 18 131/77 99
11/12/23 07:00 11/12/23 07:00 11/12/23 07:00 11/12/23 07:00 11/12/23 07:00
Physical Exam
Constitutional: No Acute Distress
Cardiovascular: Regular Rate and S1/S2; Negative Murmur or Rub
Pulmonary: Clear and Symmetric; Negative Wheezes or Rales
Gastrointestinal: Soft, Non Tender, Non Distended and Normal Bowel Sounds
Genito-Urinary: Clear Urine; Negative Suprapubic Tenderness or CVA Tenderness
Skin: Warm and Dry; Negative Rash or Jaundice
Objective Data
Lab Data
Lab Results
11/12/23 06:42
11/12/23 06:42
Estimated Creat Clear 30 ml/min 11/12/23 06:42
Lactic Acid 1.5 mmol/L (0.7-2.0) 11/08/23 10:22
Total Bilirubin 1.4 mg/dl (0.2-1.3) H 11/08/23 04:05
AST 17 U/L (17-59) 11/08/23 04:05
ALT 17 U/L (0-50) 11/08/23 04:05
Alkaline Phosphatase 56 U/L (38-126) 11/08/23 04:05
Most recent labs reviewed.
Micro Results:
11/08/23 04:09 Blood Culture - Preliminary
Blood/Venous No Growth in 4 days- Final report to follow
11/08/23 04:05 Blood Culture - Preliminary
Blood/Venous No Growth in 4 days- Final report to follow
11/08/23 15:35 Urine Culture - Final
Urine Enterococcus faecalis
Acinet. baumannii/haemolyticus
11/08/23 04:05 Urine Culture - Final
Urine Enterococcus faecalis
Acinet. baumannii/haemolyticus
--- NOTE | 2023-11-12 15:40 | W.PN.HOSP.TC ---
Today's Communication/Plan
-
continue IV Abx and follow ID/urology recs
Assessment / Plan
Assessment / Plan
Assessment:
Sepsis - due to complicated CAUTI versus nephrolithiasis. Hemodynamically stable. Continue IV Unasyn per ID. Blood cultures negative so far, urine culture shows Enterococcus, Acinetobacter.
Nephrolithiasis - urology consulted. ureteroscopy planned . CT scan shows improvement in hydronephrosis. Bilateral percutaneous nephrostomies are in place. Left ureteral stent in place. New right UPJ stone noted.
NITA on CKD 4 - he was on ibuprofen at home. avoid further NSAIDs. Creatinine improving, 2.9. Baseline is 2.8
Chronic metabolic acidosis due to CKD - continue sodium bicarbonate orally.
Hyponatremia - sodium 138, improving. Urine studies consistent with excess ADH. Fluid restriction ordered.
Hypothyroidism - continue Synthroid. TSH normal.
Acute on chronic anemia, normocytic - hemoglobin 8.1. No signs of bleeding. Low B12 and replacement ordered.
Hyperlipidemia - continue atorvastatin.
Obesity due to excess calories
DVT ppx: SCDs
Full code
PT/OT -Home health recommended.
Anticipated Discharge: > 48 hours
Subjective/Interval History
-
Date of Service: November 12, 2023
denies any complaints presently, resting well
Objective Data
-
Labs:
Laboratory Results
11/12/23
06:42
WBC 6.9
Hgb 8.2 L
Hct 24.8 L
Plt Count 261
Sodium 141
Potassium 3.9
Chloride 109 H
Carbon Dioxide 21 L
BUN 42 H
Creatinine 2.9 H
Glucose 95
Calcium 8.9
Vital Signs:
Vital Signs
Temp Pulse Resp BP Pulse Ox
98.1 F 74 18 131/77 99
11/12/23 07:00 11/12/23 07:00 11/12/23 07:00 11/12/23 07:00 11/12/23 07:00
I&O
11/11/23 11/12/23 11/13/23
06:59 06:59 06:59
Intake Total 1440 / 1440 1110 / 1110
Output Total 2900 / 2900 2975 / 2975
Balance -1460 / -1460 -1865 / -1865
Physical Exam
-
General: No Apparent Distress
HEENT: Normocephalic and Atraumatic
Respiratory: Clear to Auscultation; Negative Wheezes or Rales
Cardiac: Regular Rhythm and S1/S2
GI: Soft
Genito-urinary: Nephrostomy Tubes
Musculoskeletal: No Edema
Neuro: AO x 3
Psych: Calm
Data Reviewed
-
Total Time Spent with Patient (in minutes): 43
Labs: Labs Reviewed by me
[2023-11-12] MEDS: SENOKOT-S PO (20:39)
[2023-11-12 23:10] VITALS: BP 134/75
[2023-11-13 05:04] LABS: % Basophils 0.6 % (0-2); % Eosinophils 6.6 % (0-6); % Immature Granulocytes 2.4 % (0-0.5); % Lymphocytes 23.2 % (20.5-51.1); % Monocytes 7.8 % (1.7-9.3); % Neutrophils 59.4 % (42.2-75.2); Absolute Basophils 0.1 10^3/uL (0-0.2); Absolute Eosinophils 0.5 10^3/uL (0-0.7); Absolute Immature Granulocytes 0.2 10^3/uL (0-0.05); Absolute Lymphocytes 1.8 10^3/uL (1.2-3.4); Absolute Monocytes 0.6 10^3/uL (0.1-0.6); Absolute Neutrophils 4.7 10^3/uL (1.4-6.5); Hematocrit 25.1 % (39.0-52.0); Hemoglobin 8.3 g/dL (13.0-18.0); Mean Corp Hgb Conc. 33.1 g/dL (33.0-37.0); Mean Corpuscular Hgb 28.1 pg (27.0-31.0); Mean Corpuscular Volume 85.1 fL (80.0-94.0); Mean Platelet Volume 9.2 fL (7.4-10.4); Nucleated Red Blood Cells % 0 % (-); Platelet Count 313 10^3/uL (130-400); Red Blood Cell Count 2.95 10^6/uL (4.70-6.10); White Blood Cell Count 7.9 10^3/uL (4.8-10.8)
[2023-11-13 05:24] LABS: Blood Urea Nitrogen 42 mg/dl (9-20); Calcium 8.6 mg/dl (8.4-10.2); Carbon Dioxide 22 mmol/L (22-30); Chloride 113 mmol/L (98-107); Estimated Creatinine Clearance 29 ml/min; Glucose 89 mg/dl (70-99); Potassium 4.1 mmol/L (3.5-5.1); Sodium 142 mmol/L (135-145); eGFR 23.49
[2023-11-13 07:00] VITALS: BP 143/81
[2023-11-13] MEDS: PROTONIX 40 MG PO (07:26)
[2023-11-13] MEDS: MIRALAX 17 GRAMS PO (07:26)
[2023-11-13] MEDS: SENOKOT-S 1 TABLET PO (07:26)
[2023-11-13] MEDS: SODIUM BICARBONATE 1300 MG PO ×3 (07:26→21:58)
[2023-11-13] MEDS: SYNTHROID 25 MCG PO (07:26)
[2023-11-13] MEDS: VITAMIN B-12 1000 MCG PO (07:26)
--- NOTE | 2023-11-13 09:56 | W.PN.URO.CBU ---
Today's Communication / Plan
-
NPO after midnight tonight for OR 11/14/23
Patient advised as to the risks of surgery: general anesthesia, right ureteral injury, kidney injury, recurrent sepsis, bleeding with possible need for transfusion given preop anemia: verbal and written consent provided
Spoke with patient's father in anticipation of surgery
Assessment / Plan
-
Complicated UTI w/o bacteremia
Bilateral nephrolithiasis: large right renal stone has migrated into the right proximal ureter: 11/08/23 CT scan personally reviewed
Renal insufficiency
Diagnosis
-
Date of Service: November 13, 2023
-
Patient Diagnosis:
Struvite and CaP04 nephrolithiasis
Renal insufficiency. Recent history of acute renal failure
Patient first underwent urgent stone intervention 1 year ago
He is most recently s/p left PCNL 10/17/23 followed roughly a week later by placement of a right PCN
---
He is scheduled for completion left nephrolitomy and right ureteroscopy with JJ stent placement 11/14/23
He presented early 11/08/23 due to fever/chills and flu-like symptoms: he has a complicated Enterobacter and Acinetobacter UTI
No evidence of bacteremia
Subjective
-
Comfortable
No abdominal pain
Objective
-
Vital Signs
Temp Pulse Resp BP Pulse Ox
97.9 F 74 18 143/81 99
11/13/23 07:00 11/13/23 07:00 11/13/23 07:00 11/13/23 07:00 11/13/23 07:00
Intake and Output
11/12/23 11/13/23 11/14/23
06:59 06:59 06:59
Intake Total 1110 / 1110 1200 / 1200
Output Total 2975 / 2975 1700 / 1700
Balance -1865 / -1865 -500 / -500
Intake:
Oral fluids 960 / 960 1200 / 1200
IV fluids (Total) 30 / 30
IV piggybacks 120 / 120
Output:
Urinary Drain Output (Total) 2975 / 2975 1700 / 1700
Left Nephrostomy 1025 / 1025 1150 / 1150
Right Nephrostomy 1950 / 1950 550 / 550
Laboratory Results
11/13/23 04:23
11/13/23 04:23
Review of Systems
-
Constitutional: No Symptoms
Respiratory: No Symptoms
Cardiac: No Symptoms
Abdomen/GI: No Symptoms
: No Symptoms
Physical Exam
-
General - well nourished, no acute distress
Abdomen - soft, no CVAT, bilateral nephrostomy tubes draining clear urine
Genitalia - normal
Skin - warm & dry with no rash
[2023-11-13] MEDS: UNASYN IV (11:44)
--- NOTE | 2023-11-13 12:03 | CM ---
NPO after MN for urology surgery tomorrow.
PT indicated [facility] Pt is returning to work post dc.
Robinson nephrostomy tubes.
PLAN Home no anticipated dc.
--- NOTE | 2023-11-13 12:38 | W.PN.HOSP.TC ---
Today's Communication/Plan
-
continue IV Abx and follow ID/urology recs. OR Tomorrow
Assessment / Plan
Assessment / Plan
Assessment:
Sepsis - due to complicated CAUTI versus nephrolithiasis. Hemodynamically stable. Continue IV Unasyn per ID. Blood cultures negative so far, urine culture shows Enterococcus, Acinetobacter.
Nephrolithiasis - urology consulted. ureteroscopy planned . CT scan shows improvement in hydronephrosis. Bilateral percutaneous nephrostomies are in place. Left ureteral stent in place. New right UPJ stone noted.
NITA on CKD 4 - he was on ibuprofen at home. avoid further NSAIDs. Creatinine improving, 2.9. Baseline is 2.8
Chronic metabolic acidosis due to CKD - continue sodium bicarbonate orally.
Hyponatremia - sodium 138, improving. Urine studies consistent with excess ADH. Fluid restriction ordered.
Hypothyroidism - continue Synthroid. TSH normal.
Acute on chronic anemia, normocytic - hemoglobin 8.1. No signs of bleeding. Low B12 and replacement ordered.
Hyperlipidemia - continue atorvastatin.
Obesity due to excess calories
DVT ppx: SCDs
Full code
PT/OT-Home health recommended.
Anticipated Discharge: > 48 hours
Subjective/Interval History
-
Date of Service: November 13, 2023
no complaints
for OR tomorrow
Objective Data
-
Labs:
Laboratory Results
11/13/23
04:23
WBC 7.9
Hgb 8.3 L
Hct 25.1 L
Plt Count 313
Sodium 142
Potassium 4.1
Chloride 113 H
Carbon Dioxide 22
BUN 42 H
Creatinine 3.0 H
Glucose 89
Calcium 8.6
Vital Signs:
Vital Signs
Temp Pulse Resp BP Pulse Ox
97.9 F 74 18 143/81 99
11/13/23 07:00 11/13/23 07:00 11/13/23 07:00 11/13/23 07:00 11/13/23 07:00
I&O
11/12/23 11/13/23 11/14/23
06:59 06:59 06:59
Intake Total 1110 / 1110 1200 / 1200
Output Total 2975 / 2975 1700 / 1700
Balance -1865 / -1865 -500 / -500
Physical Exam
-
General: No Apparent Distress
HEENT: Normocephalic and Atraumatic
Respiratory: Negative Wheezes or Rales
Cardiac: Regular Rhythm and S1/S2
GI: Soft
Genito-urinary: Nephrostomy Tubes
Neuro: AO x 3
Hematologic / Lymphatic: No Lymphadenopathy
Psych: Calm
Data Reviewed
-
Total Time Spent with Patient (in minutes): 45
Labs: Labs Reviewed by me
[2023-11-13 15:00] VITALS: BP 127/77
--- NOTE | 2023-11-13 15:14 | W.PN.ID1 ---
Date of Service
Date of Service: November 13, 2023
Today's Communication
continue unasyn
Assessment / Plan
Complicated UTI
Bilateral PCN tubes with proximal obstruction of the R side, L tube distal portion likely nonfunctional
NITA on CKD4
Fevers
- urine culture 100K Acinetobacter and 100K e faecalis
- blood cultures x2 no growth
- continue unasyn
- ureteroscopy planned tomorrow
- follow clinically
Chief Complaint
-: Fever and UTI
Subjective / Review of Systems
afebrile
bp stable
tolerating current therapies
for stone removal tomorrow
Vital Signs / Physical Exam
Vital Signs
Vital Signs
Temp Pulse Resp BP Pulse Ox
97.9 F 74 18 143/81 99
11/13/23 07:00 11/13/23 07:00 11/13/23 07:00 11/13/23 07:00 11/13/23 07:00
Physical Exam
Constitutional: No Acute Distress
Cardiovascular: Regular Rate and S1/S2; Negative Murmur or Rub
Pulmonary: Clear and Symmetric; Negative Wheezes or Rales
Gastrointestinal: Soft, Non Tender, Non Distended and Normal Bowel Sounds
Skin: Warm and Dry; Negative Rash or Jaundice
Objective Data
Lab Data
Lab Results
11/13/23 04:23
11/13/23 04:23
Estimated Creat Clear 29 ml/min 11/13/23 04:23
Lactic Acid 1.5 mmol/L (0.7-2.0) 11/08/23 10:22
Total Bilirubin 1.4 mg/dl (0.2-1.3) H 11/08/23 04:05
AST 17 U/L (17-59) 11/08/23 04:05
ALT 17 U/L (0-50) 02/09/24 04:05
Alkaline Phosphatase 56 U/L (38-126) 11/08/23 04:05
Most recent labs reviewed.
Micro Results:
11/08/23 04:05 Blood Culture - Final
Blood/Venous No Growth - Final Report
11/08/23 04:09 Blood Culture - Final
Blood/Venous No Growth - Final Report
11/08/23 15:35 Urine Culture - Final
Urine Enterococcus faecalis
Acinet. baumannii/haemolyticus
11/08/23 04:05 Urine Culture - Final
Urine Enterococcus faecalis
Acinet. baumannii/haemolyticus
[2023-11-13 15:22] VITALS: BP 143/81; PULSE 74
[2023-11-13] MEDS: SENOKOT-S PO (20:03)
[2023-11-13 23:00] VITALS: BP 148/78
[2023-11-14] VITALS (10 sets, daily range): BP systolic 117–148; BP diastolic 59–81; BMI 33.2
[2023-11-14] MEDS: UNASYN IV ×2 (00:09→11:09)
[2023-11-14] MEDS: SYNTHROID 25 MCG PO (05:55)
[2023-11-14 06:57] LABS: Hematocrit 24.5 % (39.0-52.0); Hemoglobin 8.2 g/dL (13.0-18.0); Mean Corp Hgb Conc. 33.5 g/dL (33.0-37.0); Mean Corpuscular Hgb 27.8 pg (27.0-31.0); Mean Corpuscular Volume 83.1 fL (80.0-94.0); Mean Platelet Volume 8.8 fL (7.4-10.4); Platelet Count 340 10^3/uL (130-400); Red Blood Cell Count 2.95 10^6/uL (4.70-6.10); Red Cell Dist. Width 15.2 % (11.5-14.5); White Blood Cell Count 7.8 10^3/uL (4.8-10.8)
[2023-11-14 07:31] LABS: Blood Urea Nitrogen 46 mg/dl (9-20); Carbon Dioxide 24 mmol/L (22-30); Chloride 108 mmol/L (98-107); Estimated Creatinine Clearance 34 ml/min; Glucose 98 mg/dl (70-99); Potassium 4.2 mmol/L (3.5-5.1); Sodium 141 mmol/L (135-145); eGFR 27.89
[2023-11-14] MEDS: MIRALAX PO (07:42)
[2023-11-14] MEDS: VITAMIN B-12 PO (07:43)
[2023-11-14] MEDS: PROTONIX PO (07:43)
[2023-11-14] MEDS: SENOKOT-S PO (07:43)
[2023-11-14] MEDS: SODIUM BICARBONATE PO (07:43)
--- NOTE | 2023-11-14 08:49 | W.PN.HOSP.TC ---
Today's Communication/Plan
-
for OR/completion left nephrolitomy and right ureteroscopy with JJ stent placement today
Assessment / Plan
Assessment / Plan
Assessment:
Sepsis - due to complicated CAUTI versus nephrolithiasis. Hemodynamically stable. Continue IV Unasyn per ID. Blood cultures negative so far, urine culture shows Enterococcus, Acinetobacter.
Nephrolithiasis - CT scan shows improvement in hydronephrosis. Bilateral percutaneous nephrostomies are in place. Left ureteral stent in place. New right UPJ stone noted. urology consulted. for OR/completion left nephrolitomy and right ureteroscopy
with JJ stent placement today
NITA on CKD 4 - he was on ibuprofen at home. avoid further NSAIDs. Creatinine improving, 2.9. Baseline is 2.8
Chronic metabolic acidosis due to CKD - continue sodium bicarbonate orally.
Hyponatremia - sodium 138, improving. Urine studies consistent with excess ADH. Fluid restriction ordered.
Hypothyroidism - continue Synthroid. TSH normal.
Acute on chronic anemia, normocytic - hemoglobin 8.1. No signs of bleeding. Low B12 and replacement ordered.
Hyperlipidemia - continue atorvastatin.
Obesity due to excess calories
DVT ppx: SCDs
Full code
PT/OT-Home health recommended.
Anticipated Discharge: 24 - 48 hours
Subjective/Interval History
-
Date of Service: November 14, 2023
no overnight events
to OR this AM
Objective Data
-
Labs:
Laboratory Results
11/14/23
06:29
WBC 7.8
Hgb 8.2 L
Hct 24.5 L
Plt Count 340
Sodium 141
Potassium 4.2
Chloride 108 H
Carbon Dioxide 24
BUN 46 H
Creatinine 2.6 H
Glucose 98
Calcium 9.0
Vital Signs:
Vital Signs
Temp Pulse Resp BP Pulse Ox
98 F 82 16 148/78 98
11/13/23 23:00 11/13/23 23:00 11/13/23 23:00 11/13/23 23:00 11/13/23 23:00
I&O
11/13/23 11/14/23 11/15/23
06:59 06:59 06:59
Intake Total 1200 / 1200 1440 / 1440
Output Total 1700 / 1700 2625 / 2625
Balance -500 / -500 -1185 / -1185
Physical Exam
-
General: No Apparent Distress
HEENT: Normocephalic and Atraumatic
Respiratory: Negative Wheezes
Cardiac: Regular Rhythm and S1/S2
GI: Soft
Genito-urinary: Nephrostomy Tubes
Neuro: AO x 3
Psych: Calm
Data Reviewed
-
Total Time Spent with Patient (in minutes): 45
Labs: Labs Reviewed by me
--- NOTE | 2023-11-14 10:28 | W.IMMPOSTOP ---
Surgical Immed Post Op Note
-
Primary Surgeon: Marck
Assisting Surgeon: Layton
Pre-op Diagnosis: Left renal calculi, right ureteral and renal calculi, NITA
Post-op Diagnosis: Same
Procedure Performed: Left percutaneous laser lithotripsy with nephrolithotomy, right ureteroscopic laser lithotripsy with stone extraction and placement right JJ stent
Anesthesia Type: GET
Specimen / Cultures: None
Estimated Blood Loss: none
Complications: None
--- NOTE | 2023-11-14 11:12 | PTCARENOTE ---
Received pt from OR in bed. R PCN w/ bloody tinged velia urine, L w/ clear yellow urine to drainage bags. Dr Acharya at bedside to discuss plan of care w/ pt and his father. VSS. Regular diet ordered. Pt denies pain. Will continue to monitor.
--- NOTE | 2023-11-14 11:54 | CM ---
CM met with patients father, Palak, as patient was in OR. Patients father reports that his son will most likely want to return to work if he is cleared by the Doctor, therefore will unfortunately not qualify for visiting nurses. CM will check back
with patient once returned from OR. CM will continue to follow for discharge planning needs.
Plan; home no needs vs possible [facility].
--- NOTE | 2023-11-14 14:55 | W.PN.ID1 ---
Date of Service
Date of Service: November 14, 2023
Today's Communication
- continue unasyn today, tomorrow switch to augmentin through 11/24; if stent removed after 11/24 then would give a single dose of augmentin on the am before removal
- follow clinically
Assessment / Plan
Complicated UTI
Bilateral PCN tubes with proximal obstruction of the R side, L tube distal portion likely nonfunctional
NITA on CKD4
Fevers
- urine culture 100K Acinetobacter and 100K e faecalis
- blood cultures x2 no growth
- continue unasyn today, tomorrow switch to augmentin through 11/24; if stent removed after 11/24 then would give a single dose of augmentin on the am before removal
- follow clinically
Chief Complaint
-: Fever and UTI
Subjective / Review of Systems
afebrile
bp stable
without leukocytosis
cr further improved
stone extraction successful, stent placed
Vital Signs / Physical Exam
Vital Signs
Vital Signs
Temp Pulse Resp BP Pulse Ox
98.9 F 89 16 137/73 98
11/14/23 13:10 11/14/23 13:10 11/14/23 13:10 11/14/23 13:10 11/14/23 13:10
Physical Exam
Constitutional: No Acute Distress
Cardiovascular: Regular Rate and S1/S2; Negative Murmur or Rub
Pulmonary: Clear and Symmetric; Negative Wheezes or Rales
Gastrointestinal: Soft, Non Tender, Non Distended and Normal Bowel Sounds
Genito-Urinary: Negative Suprapubic Tenderness
Skin: Warm and Dry; Negative Rash or Jaundice
Objective Data
Lab Data
Lab Results
11/14/23 06:29
11/14/23 06:29
Estimated Creat Clear 34 ml/min 11/14/23 06:29
Lactic Acid 1.5 mmol/L (0.7-2.0) 11/08/23 10:22
Total Bilirubin 1.4 mg/dl (0.2-1.3) H 11/08/23 04:05
AST 17 U/L (17-59) 11/08/23 04:05
ALT 17 U/L (0-50) 11/08/23 04:05
Alkaline Phosphatase 56 U/L (38-126) 11/08/23 04:05
Most recent labs reviewed.
Micro Results:
11/08/23 04:05 Blood Culture - Final
Blood/Venous No Growth - Final Report
11/08/23 04:09 Blood Culture - Final
Blood/Venous No Growth - Final Report
11/08/23 15:35 Urine Culture - Final
Urine Enterococcus faecalis
Acinet. baumannii/haemolyticus
11/08/23 04:05 Urine Culture - Final
Urine Enterococcus faecalis
Acinet. baumannii/haemolyticus
[2023-11-14] MEDS: SODIUM BICARBONATE 1300 MG PO ×2 (15:59→21:53)
[2023-11-14] MEDS: SENOKOT-S 1 TABLET PO (19:57)
[2023-11-15 03:16] VITALS: BP 143/87
[2023-11-15 05:06] LABS: Hematocrit 22.8 % (39.0-52.0); Hemoglobin 7.6 g/dL (13.0-18.0); Mean Corp Hgb Conc. 33.3 g/dL (33.0-37.0); Mean Corpuscular Hgb 27.3 pg (27.0-31.0); Mean Platelet Volume 8.7 fL (7.4-10.4); Platelet Count 366 10^3/uL (130-400); Red Blood Cell Count 2.78 10^6/uL (4.70-6.10); Red Cell Dist. Width 14.9 % (11.5-14.5); White Blood Cell Count 12.8 10^3/uL (4.8-10.8)
[2023-11-15 05:20] VITALS: BMI 33.6
[2023-11-15 05:29] LABS: Blood Urea Nitrogen 47 mg/dl (9-20); Carbon Dioxide 25 mmol/L (22-30); Chloride 105 mmol/L (98-107); Estimated Creatinine Clearance 34 ml/min; Glucose 100 mg/dl (70-99); Potassium 4.1 mmol/L (3.5-5.1); Sodium 139 mmol/L (135-145); eGFR 27.89
[2023-11-15] MEDS: SYNTHROID 25 MCG PO (06:06)
[2023-11-15] MEDS: AUGMENTIN 875 MG/125 MG 1 TABLET PO ×3 (06:06→21:45)
[2023-11-15 07:00] VITALS: BP 145/80
[2023-11-15] MEDS: PROTONIX 40 MG PO (07:40)
[2023-11-15] MEDS: SODIUM BICARBONATE 1300 MG PO ×3 (07:41→21:45)
[2023-11-15] MEDS: SENOKOT-S 1 TABLET PO ×2 (07:41→21:45)
[2023-11-15] MEDS: VITAMIN B-12 1000 MCG PO (07:41)
[2023-11-15] MEDS: MIRALAX PO (07:42)
--- NOTE | 2023-11-15 08:35 | W.PN.URO.CBU ---
Today's Communication / Plan
-
Reinforce nephrostomy sites prn: expect drainage left > right
Follow BMP
Would repeat urine culture from voided specimen tomorrow
Assessment / Plan
-
Complicated UTI w/o bacteremia
Bilateral nephrolithiasis: large right renal stone had migrated into the right proximal ureter: 11/08/23 CT scan personally reviewed
Renal insufficiency
---
s/p bilateral stone surgery 10/31/23
Diagnosis
-
Date of Service: November 15, 2023
-
Patient Diagnosis:
Struvite and CaP04 nephrolithiasis
Renal insufficiency. Recent history of acute renal failure
Patient first underwent urgent stone intervention 1 year ago
He is most recently s/p left PCNL 10/17/23 followed roughly a week later by placement of a right PCN
---
He is s/p completion left nephrolithomy and right ureteroscopic laer lithotripsy with stone extraction and JJ stent placement 11/14/23
Bilateral nephrostomy tubes were removed at the bedside w/oevent 11/15/23
Subjective
-
Comfortable
No complaints
Objective
-
Vital Signs
Temp Pulse Resp BP Pulse Ox
98.6 F 82 16 143/87 97
11/15/23 03:16 11/15/23 03:16 11/15/23 03:16 11/15/23 03:16 11/15/23 03:16
Intake and Output
11/14/23 11/15/23 11/16/23
06:59 06:59 06:59
Intake Total 1440 / 1440 1540 / 1540
Output Total 2625 / 2625 1720 / 1720
Balance -1185 / -1185 -180 / -180
Intake:
Oral fluids 1440 / 1440 1440 / 1440
IV fluids (Total) 100 / 100
Normosol 100 / 100
Output:
Urinary Drain Output (Total) 2625 / 2625 1720 / 1720
Left Nephrostomy 925 / 925 475 / 475
Right Nephrostomy 1700 / 1700 1245 / 1245
Laboratory Results
11/15/23 04:55
11/15/23 04:55
Review of Systems
-
Constitutional: No Symptoms
Respiratory: No Symptoms
Cardiac: No Symptoms
Abdomen/GI: No Symptoms
Musculoskeletal: No Symptoms
Physical Exam
-
General - well nourished, no acute distress
Abdomen - soft, non-tender, no CVAT
Genitalia - normal
Skin - warm & dry with no rash
--- NOTE | 2023-11-15 10:03 | CM ---
Addendum entered by Cassidy Chicas 11/15/23 11:14:
CM met with patient bedside, patient reports he is feeling happy and doing well. Patient declines need for home health and reports he will be staying with his dad for a period of time. CM will continue to follow for discharge planning needs.
Original Note:
BERNADETTE spoke with Kika from [employer] (cell: [phone], office: [phone] ext [phone]). Kika requested discharge paperwork faxed to [phone], along with any new medications and PT notes. CM will fax PT notes to Marie.
Kika reports the patient is very independent and receives assistance from [facility] in regards to getting groceries, paying bills, etc. CM discussed PT recommendation of home health, however patient would like to return to work and therefore cannot
accept patient. Kika reports patient will want to get back to work and not stay home. CM will continue to follow for discharge planning needs.
Plan; home with father when stable.
Fax to [facility] upon discharge: [phone]
--- NOTE | 2023-11-15 11:45 | W.PN.HOSP.TC ---
Today's Communication/Plan
-
repeat urine culture in AM
DC planning when cleared by Urology/ID
Assessment / Plan
Assessment / Plan
Assessment:
Sepsis - due to complicated CAUTI versus nephrolithiasis. Hemodynamically stable. Augmentin per ID. Blood cultures negative so far, urine culture shows Enterococcus, Acinetobacter.
Nephrolithiasis - CT scan shows improvement in hydronephrosis. Bilateral percutaneous nephrostomies are in place. Left ureteral stent in place. New right UPJ stone noted. urology consulted. s/p completion left nephrolitomy and right ureteroscopy
with JJ stent placement 11/14
NITA on CKD 4 - he was on ibuprofen at home. avoid further NSAIDs. Creatinine improving, 2.6. Baseline is 2.8
Chronic metabolic acidosis due to CKD - continue sodium bicarbonate orally.
Hyponatremia - sodium 139, improving. Urine studies consistent with excess ADH. Fluid restriction ordered.
Hypothyroidism - continue Synthroid. TSH normal.
Acute on chronic anemia, normocytic - hemoglobin 7.6. No signs of bleeding. Low B12 and replacement ordered.
Hyperlipidemia - continue atorvastatin.
Obesity due to excess calories
DVT ppx: SCDs
Full code
Anticipated Discharge: Within 24 hours
Subjective/Interval History
-
Date of Service: November 15, 2023
no complaints
nephrostomy tubes were removed bedside
Objective Data
-
Labs:
Laboratory Results
11/15/23
04:55
WBC 12.8 H
Hgb 7.6 L
Hct 22.8 L
Plt Count 366
Sodium 139
Potassium 4.1
Chloride 105
Carbon Dioxide 25
BUN 47 H
Creatinine 2.6 H
Glucose 100 H
Calcium 9.0
Vital Signs:
Vital Signs
Temp Pulse Resp BP Pulse Ox
98.0 F 75 18 145/80 98
11/15/23 07:00 11/15/23 07:00 11/15/23 07:00 11/15/23 07:00 11/15/23 07:00
I&O
11/14/23 11/15/23 11/16/23
06:59 06:59 06:59
Intake Total 1440 / 1440 1540 / 1540
Output Total 2625 / 2625 1720 / 1720
Balance -1185 / -1185 -180 / -180
Physical Exam
-
General: No Apparent Distress
HEENT: Normocephalic and Atraumatic
Respiratory: Negative Wheezes or Rales
Cardiac: Regular Rhythm and S1/S2
GI: Soft
Genito-urinary: No Costovertebral Tender
Musculoskeletal: No Edema
Neuro: AO x 3
Hematologic / Lymphatic: No Lymphadenopathy
Psych: Calm
Data Reviewed
-
Total Time Spent with Patient (in minutes): 42
Labs: Labs Reviewed by me
--- NOTE | 2023-11-15 14:55 | W.PN.ID1 ---
Date of Service
Date of Service: November 15, 2023
Today's Communication
Continue abx.
Assessment / Plan
Complicated UTI
Bilateral PCN tubes with proximal obstruction of the R side, L tube distal portion likely nonfunctional
NITA on CKD4
Fevers
Leukocytosis
- urine culture 100K Acinetobacter and 100K e faecalis
- blood cultures x2 no growth
- continue augmentin through 11/24; if stent removed after 11/24 then would give a single dose of augmentin on the am before removal
- follow clinically
Chief Complaint
-: Fever and UTI
Subjective / Review of Systems
Review of Systems: No Fever, No Chills, No Cough, No Chest Pain, No Abdominal Pain, No Nausea, No Diarrhea and No Dysuria
Vital Signs / Physical Exam
Vital Signs
Vital Signs
Temp Pulse Resp BP Pulse Ox
98.0 F 75 18 145/80 98
11/15/23 07:00 11/15/23 07:00 11/15/23 07:00 11/15/23 07:00 11/15/23 07:00
Physical Exam
Constitutional: No Acute Distress, Comfortable and Non-toxic
Eyes: Sclera Anicteric
Pulmonary: Non Labored
Gastrointestinal: Non Distended
Extremities: Negative Cyanosis or Erythema
Neurological: Awake, Alert and Oriented
Psychological: Calm
Objective Data
Lab Data
Lab Results
11/15/23 04:55
11/15/23 04:55
Estimated Creat Clear 34 ml/min 11/15/23 04:55
Lactic Acid 1.5 mmol/L (0.7-2.0) 11/08/23 10:22
Total Bilirubin 1.4 mg/dl (0.2-1.3) H 11/08/23 04:05
AST 17 U/L (17-59) 11/08/23 04:05
ALT 17 U/L (0-50) 11/08/23 04:05
Alkaline Phosphatase 56 U/L (38-126) 11/08/23 04:05
Most recent labs reviewed.
Micro Results:
11/08/23 04:05 Blood Culture - Final
Blood/Venous No Growth - Final Report
11/08/23 04:09 Blood Culture - Final
Blood/Venous No Growth - Final Report
11/08/23 15:35 Urine Culture - Final
Urine Enterococcus faecalis
Acinet. baumannii/haemolyticus
11/08/23 04:05 Urine Culture - Final
Urine Enterococcus faecalis
Acinet. baumannii/haemolyticus
Urine Culture Final 11/11/23-0851
CC: Greater than 100,000 CFU/ML Enterococcus faecalis
CC: Greater than 100,000 CFU/ML
Acinet. baumannii/haemolyticus
1. Enterococcus faecalis
M.I.C. RX
--------- ---
Ampicillin <=2 S
Gentamicin Synergy Screen >500 R
Levofloxacin <=1 S
Nitrofurantoin-Urine Only <=32 S
Tetracycline >8 R
Vancomycin 2 S
2. Acinet. baumannii/haemolyticus
M.I.C. RX
--------- ---
Ampicillin/Sulbactam <=8/4 S
Cefepime <=2 S
Ceftazidime 4 S
Ciprofloxacin <=0.25 S
Gentamicin <=4 S
Levofloxacin <=0.5 S
Meropenem <=1 S
Tobramycin <=4 S
Trimethoprim/Sulfamethoxazole <=2/38 S
[2023-11-15 15:00] VITALS: BP 124/66
[2023-11-15 23:23] VITALS: BP 117/66
[2023-11-16 06:00] VITALS: BMI 33.5
[2023-11-16] MEDS: SYNTHROID 25 MCG PO (06:22)
[2023-11-16] MEDS: PROTONIX 40 MG PO (07:40)
[2023-11-16] MEDS: SODIUM BICARBONATE 1300 MG PO (07:40)
[2023-11-16] MEDS: AUGMENTIN 875 MG/125 MG 1 TABLET PO (07:40)
[2023-11-16] MEDS: SENOKOT-S 1 TABLET PO (07:41)
[2023-11-16] MEDS: VITAMIN B-12 1000 MCG PO (07:41)
[2023-11-16] MEDS: MIRALAX PO (07:45)
[2023-11-16 07:55] VITALS: BP 142/75
--- NOTE | 2023-11-16 08:15 | W.PN.URO.CBU ---
Addendum entered and electronically signed by Arnaldo Goldsmith MD 11/16/23 09:24:
Cysto/bilateral stent removal will be coordinated in office (Dr. Acharya)
Urology will F/U on UCx results from 11/16 early in coming week
D/w Dr. Martinez
Original Note:
Today's Communication / Plan
-
Bilateral flank dressing change/teaching appreciated by RN
UCx sent 11/16 => pending, will F/U next week
OK to d/c home from urologic perspective
Assessment / Plan
-
Complicated UTI w/o bacteremia
Bilateral nephrolithiasis: large right renal stone had migrated into the right proximal ureter: 11/08/23 CT scan personally reviewed
Renal insufficiency
s/p bilateral stone surgery 10/31/23
Diagnosis
-
Date of Service: November 16, 2023
-
Patient Diagnosis:
Struvite and CaP04 nephrolithiasis
Renal insufficiency. Recent history of acute renal failure
Patient first underwent urgent stone intervention 1 year ago
He is most recently s/p left PCNL 10/17/23 followed roughly a week later by placement of a right PCN
s/p completion left nephrolithomy and right ureteroscopic laer lithotripsy with stone extraction and JJ stent placement 11/14/23
Bilateral nephrostomy tubes were removed at the bedside w/o event 11/15/23
Subjective
-
Voiding clear urine.
Denies dysuria.
Tolerating diet.
Afebrile.
Objective
-
Vital Signs
Temp Pulse Resp BP Pulse Ox
97.7 F 71 16 142/75 98
11/16/23 07:55 11/16/23 07:55 11/16/23 07:55 11/16/23 07:55 11/16/23 07:55
Intake and Output
11/15/23 11/16/23 11/17/23
06:59 06:59 06:59
Intake Total 1540 / 1540 240 / 240
Output Total 1720 / 1720 525 / 525
Balance -180 / -180 -285 / -285
Intake:
Oral fluids 1440 / 1440 240 / 240
IV fluids (Total) 100 / 100
Normosol 100 / 100
Output:
Urinary Drain Output (Total) 1720 / 1720
Left Nephrostomy 475 / 475
Right Nephrostomy 1245 / 1245
Urine, Voided 525 / 525
Physical Exam
-
General - well developed, well nourished, no acute distress
Abdomen - soft, non-tender, non-distended, bilateral flank sites c/d/i w/ dry overlying dressing
Genitalia - normal
Skin - warm & dry with no rash
Neuro - AOx3, no motor deficits
Extremities - no clubbing, no cyanosis, no edema
Care Review
Data Reviewed
Discussed with: Hospitalist and Nursing
CT Scan: Report Pers Reviewed and Image Pers Reviewed
--- NOTE | 2023-11-16 09:05 | W.PN.HOSP.TC ---
Today's Communication/Plan
-
dc home today
Assessment / Plan
Assessment / Plan
Assessment:
Sepsis - due to complicated CAUTI versus nephrolithiasis. Hemodynamically stable. Augmentin per ID. Blood cultures negative so far, urine culture shows Enterococcus, Acinetobacter.
Nephrolithiasis - CT scan shows improvement in hydronephrosis. Bilateral percutaneous nephrostomies are in place. Left ureteral stent in place. New right UPJ stone noted. urology consulted. s/p completion left nephrolitomy and right ureteroscopy
with JJ stent placement 11/14. Bilateral percutaneous nephrostomies now removed.
NITA on CKD 4 - he was on ibuprofen at home. avoid further NSAIDs. Creatinine improving, 2.6. Baseline is 2.8
Chronic metabolic acidosis due to CKD - continue sodium bicarbonate orally.
Hyponatremia - sodium 139, improving. Urine studies consistent with excess ADH. Fluid restriction ordered.
Hypothyroidism - continue Synthroid. TSH normal.
Acute on chronic anemia, normocytic - hemoglobin 7.6. No signs of bleeding. Low B12 and replacement ordered.
Hyperlipidemia - continue atorvastatin.
Obesity due to excess calories
DVT ppx: SCDs
Full code
Anticipated Discharge: Today
Subjective/Interval History
-
Date of Service: November 16, 2023
no overnight events
Objective Data
-
Labs:
Laboratory Results
11/16/23 11/16/23
03:37 03:38
WBC Pending
Hgb Pending
Hct Pending
Plt Count Pending
Sodium Pending
Potassium Pending
Chloride Pending
Carbon Dioxide Pending
BUN Pending
Creatinine Pending
Glucose Pending
Calcium Pending
Vital Signs:
Vital Signs
Temp Pulse Resp BP Pulse Ox
97.7 F 71 16 142/75 98
11/16/23 07:55 11/16/23 07:55 11/16/23 07:55 11/16/23 07:55 11/16/23 07:55
I&O
11/15/23 11/16/23 11/17/23
06:59 06:59 06:59
Intake Total 1540 / 1540 240 / 240
Output Total 1720 / 1720 525 / 525
Balance -180 / -180 -285 / -285
Physical Exam
-
General: No Apparent Distress
HEENT: Normocephalic and Atraumatic
Respiratory: Negative Wheezes
Cardiac: Regular Rhythm and S1/S2
GI: Soft
Genito-urinary: No Costovertebral Tender
Musculoskeletal: No Edema
Neuro: AO x 3
Psych: Calm
Data Reviewed
-
Total Time Spent with Patient (in minutes): 42
Labs: Labs Reviewed by me
--- NOTE | 2023-11-16 09:23 | W.DS.TRANS ---
DC Summary - [employer]
-
Discharge Instructions:
Discharge Diagnosis/Procedures sepsis from UTI. Stone and stent procedure 11/14.
Nephrostomy tubes removed.
Diet Regular
Activity As tolerated
Bathing Restrictions None
Instructions:
Stand-Alone Forms:
Changes to Home Medications: No
Discharge Medications:
DC Medications w/original date entered in [employer]
levothyroxine 25 mcg tablet 25 mcg PO DAILY AT 0700 Thyroid 11/15/22
acetaminophen 325 mg tablet 650 mg PO Q6H PRN pain 10/16/23
atorvastatin 40 mg tablet 40 mg PO DAILY High Cholesterol 10/16/23
sodium bicarbonate 650 mg tablet 650 mg PO TID #90 tabs 10/25/23
ibuprofen 600 mg tablet 600 mg PO Q8H PRN inflammation or fever 11/08/23
lisinopril 20 mg tablet 20 mg PO DAILY Blood Pressure 11/08/23
loperamide 2 mg capsule 2 mg PO Q4H PRN diarrhea 11/08/23
potassium citrate 15 mEq (1,620 mg) tablet,extended release 15 meq PO BID Electrolyte Repletion 11/08/23
amoxicillin 875 mg-potassium clavulanate 125 mg tablet 1 tab PO Q12 #18 tabs 11/16/23
cyanocobalamin (vitamin B-12) 1,000 mcg tablet 1,000 mcg PO DAILY #100 tabs 11/16/23
Home Medication Changes
Pending Results: No
Total time spent discharging patient (in min): 42
--- NOTE | 2023-11-16 11:04 | CM ---
Patient seen bedside, discussed plan for discharge today. CM spoke with patients father, Palak, will be here around 1:30 to bring patient home. Per Palak, [facility] caregiver will continuous pickling line pickler helper medications from [facility] and meet Palak and patient at [facility]'s
home. CM will review IMM with Palak once he arrives to hospital. CM will continue to follow for discharge planning needs.
Plan; home with father and [facility] services.
Fax to [facility] upon discharge: [phone]
== END 2023-11-16 13:56 | disposition home or self-care (01) | DRG 659 ==
LOC: 4 WEST ACU 06:00
PROVIDERS: Hospitalist; Specialist; ADMITTING PHYSICIAN Hospitalist; ATTENDING PHYSICIAN Internal Medicine; CONSULT PHYSICIAN Student in an Organized Health Care Education/Training Program; EMERGENCY PHYSICIAN Student in an Organized Health Care Education/Training Program; FAMILY PHYSICIAN Family Medicine
PROC: 0TC14ZZ Extirpation of Matter from Left Kidney, Percutaneous Endoscopic Approach (ICD-10-PCS; 2023-11-14)
PROC: 0T768DZ Dilation of Right Ureter with Intraluminal Device, Via Natural or Artificial Opening Endoscopic (ICD-10-PCS; 2023-11-14)
PROC: 0TC Urinary System, Extirpation (ICD-10-PCS; 2023-11-14)
DX: T83.511A Infection and inflammatory reaction due to indwelling urethral catheter, initial encounter (principal); A41.9 Sepsis, unspecified organism; N13.6 Pyonephrosis; N17.9 Acute kidney failure, unspecified; N18.4 Chronic kidney disease, stage 4 (severe); E87.22 Chronic metabolic acidosis; E87.1 Hypo-osmolality and hyponatremia; N20.2 Calculus of kidney with calculus of ureter; Y73.1 Therapeutic (nonsurgical) and rehabilitative gastroenterology and urology devices associated with adverse incidents; E11.22 Type 2 diabetes mellitus with diabetic chronic kidney disease; I12.9 Hypertensive chronic kidney disease with stage 1 through stage 4 chronic kidney disease, or unspecified chronic kidney disease; D63.1 Anemia in chronic kidney disease; E03.9 Hypothyroidism, unspecified
CPT/HCPCS: 36415; 74176; 74420; 76000; 80048; 80053; 81003; 81015; 82607; 82728; 82746; 83540; 83550; 83605; 83735; 83935; 84100; 84300; 84443; 85025; 85027; 85045; 86850; 86900; 86901; 87040; 87077; 87086; 87186; 96361; 96365; 96375; 97116; 97162; 97530; 99291; C1726; C1758; C1894; C2617

== ENCOUNTER → 2023-12-13 14:24 | Outpatient (REF) | payer MEDICARE, MEDICAID, SELFPAY | LOC: CLAB 14:24 | PROVIDERS: ATTENDING PHYSICIAN Specialist | DX: N39.0 Urinary tract infection, site not specified (principal) | CPT/HCPCS: 87086 ==

== ENCOUNTER → 2023-12-19 13:00 | Outpatient (REF) | payer MEDICARE, MEDICAID, SELFPAY | LOC: HWRAD 13:00 | PROVIDERS: ATTENDING PHYSICIAN Specialist; FAMILY PHYSICIAN Nurse Practitioner | DX: N20.0 Calculus of kidney (principal) | CPT/HCPCS: 74018 ==

== ENCOUNTER → 2024-01-22 15:27 | Outpatient (REF) | payer MEDICARE, MEDICAID, SELFPAY | LOC: HWRAD 15:27 | PROVIDERS: ATTENDING PHYSICIAN Specialist; FAMILY PHYSICIAN Nurse Practitioner | DX: N20.0 Calculus of kidney (principal) | CPT/HCPCS: 74018 ==

== ENCOUNTER → 2024-04-06 15:30 | Outpatient (REF) | payer MEDICARE, MEDICAID, SELFPAY | LOC: HWRAD 15:30 | PROVIDERS: ATTENDING PHYSICIAN Specialist; FAMILY PHYSICIAN Family Medicine | DX: N20.0 Calculus of kidney (principal); N13.2 Hydronephrosis with renal and ureteral calculous obstruction | CPT/HCPCS: 74176 ==

== ENCOUNTER → 2024-05-13 08:55 | Outpatient (REF) | payer MEDICARE, MEDICAID, SELFPAY | LOC: HWRAD 08:55 | PROVIDERS: ATTENDING PHYSICIAN Specialist; FAMILY PHYSICIAN Nurse Practitioner | DX: N20.0 Calculus of kidney (principal) | CPT/HCPCS: 74018; 74176 ==

== ENCOUNTER 2024-08-13 06:15 | Day surgery (SDC) | payer MEDICARE, MEDICAID, SELFPAY ==
[2024-08-07 10:45] VITALS: BMI 34.8
[2024-08-07 11:05] LABS: Hematocrit 37.5 % (39.0-52.0); Hemoglobin 12.9 g/dL (13.0-18.0); Mean Corp Hgb Conc. 34.4 g/dL (33.0-37.0); Mean Corpuscular Hgb 28.9 pg (27.0-31.0); Mean Corpuscular Volume 84.1 fL (80.0-94.0); Mean Platelet Volume 9.3 fL (7.4-10.4); Platelet Count 216 10^3/uL (130-400); Red Blood Cell Count 4.46 10^6/uL (4.70-6.10); Red Cell Dist. Width 13.7 % (11.5-14.5); White Blood Cell Count 7.5 10^3/uL (4.8-10.8)
[2024-08-07 11:35] LABS: Blood Urea Nitrogen 45 mg/dl (9-20); Calcium 8.9 mg/dl (8.4-10.2); Carbon Dioxide 24 mmol/L (22-30); Chloride 106 mmol/L (98-107); Estimated Creatinine Clearance 31 ml/min; Glucose 81 mg/dl (70-99); Potassium 4.6 mmol/L (3.5-5.1); Sodium 143 mmol/L (135-145); eGFR 22.44
--- NOTE | 2024-08-11 11:50 | PTCARENOTE ---
Mariya in office made aware of creatinine 3.1
--- NOTE | 2024-08-11 12:13 | PTCARENOTE ---
Dr. Sanchez made aware of abnormal EKG, no further action requested.
[2024-08-13] VITALS (8 sets, daily range): BP systolic 133–178; BP diastolic 85–99; BMI 34.8
[2024-08-13] MEDS: Pyridium 200 MG PO (06:58)
== END 2024-08-13 10:05 | disposition home or self-care (01) ==
LOC: SDS 06:15
PROVIDERS: ATTENDING PHYSICIAN Specialist; FAMILY PHYSICIAN Nurse Practitioner; REFERRING PHYSICIAN Specialist
DX: N13.2 Hydronephrosis with renal and ureteral calculous obstruction (principal); N28.9 Disorder of kidney and ureter, unspecified
CPT/HCPCS: 52332; 36415; 74018; 76000; 80048; 85027; 93005; A4300; C2617

== ENCOUNTER 2025-02-02 10:17 | Day surgery (SDC) | payer MEDICARE, MEDICAID, SELFPAY ==
[2025-02-02] VITALS (11 sets, daily range): BP systolic 153–180; BP diastolic 76–128; BMI 34.8
[2025-02-02 11:06] LABS: Hematocrit 30.5 % (39.0-52.0); Hemoglobin 10.4 g/dL (13.0-18.0); Mean Corp Hgb Conc. 34.1 g/dL (33.0-37.0); Mean Corpuscular Hgb 29.1 pg (27.0-31.0); Mean Corpuscular Volume 85.2 fL (80.0-94.0); Mean Platelet Volume 9.5 fL (7.4-10.4); Platelet Count 239 10^3/uL (130-400); Red Blood Cell Count 3.58 10^6/uL (4.70-6.10); Red Cell Dist. Width 13.2 % (11.5-14.5); White Blood Cell Count 6.7 10^3/uL (4.8-10.8)
[2025-02-02 11:10] LABS: INR 0.99; PT 13.3 Sec (11.4-14.6)
[2025-02-02 11:11] LABS: APTT 32.9 Sec (23.4-35.0)
[2025-02-02] MEDS: PERIDEX 0.12% ORAL RINSE 15 ML PO (11:24)
[2025-02-02] MEDS: BACTROBAN NASAL 1 GRAM NASAL (11:25)
[2025-02-02 11:32] LABS: Blood Urea Nitrogen 63 mg/dl (9-20); Calcium 9.2 mg/dl (8.4-10.2); Carbon Dioxide 24 mmol/L (22-30); Chloride 108 mmol/L (98-107); Estimated Creatinine Clearance 20 ml/min; Glucose 91 mg/dl (70-99); Potassium 4.2 mmol/L (3.5-5.1); Sodium 142 mmol/L (135-145); eGFR 13.28
--- NOTE | 2025-02-02 14:34 | W.SUR.PREOP ---
Pre-Operative Surgical Note
-
I have examined this patient prior to the performance of the scheduled procedure.
The patient's condition is unchanged from the time of the current History and
Physical and the patient is able to undergo the scheduled procedure.
--- NOTE | 2025-02-02 16:40 | OR.RPT ---
Operative Report
Operative Report
Date of Operation: 02/02/2025
Pre Op Diagnosis: Advanced chronic kidney disease with anticipated need for hemodialysis initiation
Post Op Diagnosis: Advanced chronic kidney disease with anticipated need for hemodialysis initiation
Procedure: Creation of left upper arm brachiobasilic arteriovenous fistula (first stage of a planned two-stage basilic vein transposition)
Surgeon: Ibrahima Lopez III, MD
Multi Media Specialist: Trang Cowan MD PGY1
Anesthesia: General
Complications: None
Estimated Blood Loss: Less than 10 cc
History and Indications for Procedure: 59-year-old male with chronic kidney disease and anticipated need for hemodialysis initiation. We brought him to the operating room for hemodialysis access creation.
Procedure in Detail: Morro Irwin was correctly identified and placed supine on the operating table. After adequate induction of anesthesia the left arm was positioned, prepped and draped in the usual sterile fashion. Preoperative antibiotics were
administered. A timeout procedure was performed with the nursing and anesthesia staff confirming the patients identity as well as the nature and laterality of the procedure.
I performed intraoperative ultrasound on the veins of the left arm. The forearm veins were too small for access creation. The upper arm cephalic vein was diffusely thick-walled and small diameter. I identified the upper arm basilic vein from the
elbow to the axilla which appeared of adequate quality and caliber for access creation. The brachial artery was also identified in the distal upper arm and proximal forearm. The appropriate site for the incision was then identified in the distal
upper arm, just proximal to the elbow.
An incision was then made in the distal upper arm. Careful sharp dissection was performed and the basilic vein exposed. Branches of the vein were ligated between silk ties and metal clips. The brachial artery was exposed with sharp dissection.
Proximal and distal control was obtained with vessel loops.
The distal end of the basilic vein was ligated with a silk tie. The vein was transected and flushed proximally with heparinized saline. The vein flushed easily and without resistance. The vessel loops on the artery were secured. An arteriotomy was
made with an 11-blade. This was extended just slightly proximally and distally with Anderson scissors. The proximal and distal artery was flushed with heparinized saline. The end of the vein was spatulated slightly. An end-to-side anastomosis was
performed from the end of the basilic vein to the brachial artery with a running 7-0 Prolene. At the completion of the anastomosis the proximal vessel loop was released first. After several heartbeats the distal brachial artery loop was released.
The suture line was closely inspected and hemostasis achieved. There was an excellent thrill in the vein. There was a good pulse in the brachial artery proximal and distal to the anastomosis. The patient had a palpable left radial pulse at the
wrist at the conclusion of the case.
The wound was irrigated with saline. Hemostasis was achieved in the wound bed. The wound was closed in multiple layers and sterile dressings applied.
The patient tolerated the procedure well and was taken to the PACU in stable condition.
Attestation: I was present and responsible for the entire procedure
Signed:
Ibrahima Lopez III, MD
Vascular Surgery
[facility]
[2025-02-02] MEDS: ROXICODONE 5 MG PO (17:40)
--- NOTE | 2025-02-02 17:51 | PTCARENOTE ---
Pt received from pacu at 1720. Pt c/o pain at incision site , bp 174/81 pt given 5mg Roxicodone as ordered prn. Pt's Bp at this time 170/91 Dr Lopez made aware, orders for patient to take his scheduled dose of hydralazine when he gets home. Pt
instructed to take hydralazine when he gets home as ordered. Pt denies any other complaints.
== END 2025-02-02 18:30 | disposition home or self-care (01) ==
LOC: CATH 10:17
PROVIDERS: ATTENDING PHYSICIAN Surgery Vascular Surgery; PRIMARYCARE PHYSICIAN Nurse Practitioner
DX: I12.0 Hypertensive chronic kidney disease with stage 5 chronic kidney disease or end stage renal disease (principal); N18.5 Chronic kidney disease, stage 5; E78.5 Hyperlipidemia, unspecified; E03.9 Hypothyroidism, unspecified
CPT/HCPCS: 36821; 80048; 85027; 85610; 85730; 93005

== ENCOUNTER → 2025-03-05 09:36 | Outpatient (REF) | payer MEDICARE, MEDICAID, SELFPAY | LOC: HWRAD 09:36 | PROVIDERS: ATTENDING PHYSICIAN Physician Assistant; FAMILY PHYSICIAN Nurse Practitioner | DX: I77.0 Arteriovenous fistula, acquired (principal); Z01.818 Encounter for other preprocedural examination | CPT/HCPCS: 93990 ==

== ENCOUNTER 2025-04-13 10:44 | Day surgery (SDC) | payer MEDICARE, MEDICAID, SELFPAY ==
[2025-04-13] VITALS (10 sets, daily range): BP systolic 141–165; BP diastolic 76–91; BMI 34.0
[2025-04-13 11:14] LABS: Hematocrit 24.9 % (39.0-52.0); Hemoglobin 8.5 g/dL (13.0-18.0); Mean Corp Hgb Conc. 34.1 g/dL (33.0-37.0); Mean Corpuscular Volume 85.6 fL (80.0-94.0); Platelet Count 234 10^3/uL (130-400); Red Cell Dist. Width 13.0 % (11.5-14.5)
[2025-04-13 11:21] LABS: INR 1.07; PT 14.2 Sec (11.4-14.6)
[2025-04-13 11:22] LABS: APTT 32.2 Sec (23.4-35.0)
[2025-04-13] MEDS: PERIDEX 0.12% ORAL RINSE 15 ML PO (11:49)
[2025-04-13] MEDS: BACTROBAN NASAL 1 GRAM NASAL (11:49)
[2025-04-13] MEDS: NSS 500 IV (11:49)
[2025-04-13 12:09] LABS: Blood Urea Nitrogen 70 mg/dl (9-20); Calcium 9.6 mg/dl (8.4-10.2); Carbon Dioxide 22 mmol/L (22-30); Chloride 109 mmol/L (98-107); Glucose 88 mg/dl (70-99); Potassium 3.8 mmol/L (3.5-5.1); Sodium 139 mmol/L (135-145); eGFR 10.37
--- NOTE | 2025-04-13 15:44 | OR.RPT ---
Operative Report
Operative Report
Date of Operation: 04/13/2025
Pre Op Diagnosis: Upper extremity brachiobasilic AV fistula (status post 1st stage of planned 2 stage basilic vein transposition)
Post Op Diagnosis: Upper extremity brachiobasilic AV fistula (status post 1st stage of planned 2 stage basilic vein transposition)
Procedure: Revision of left upper extremity brachiobasilic AV fistula with transposition of the basilic vein (second stage BVT)
Surgeon: Ibrahima Lopez III, MD
Dopster: Adama Yin MD PGY-6
Anesthesia: General
Complications: None
Estimated Blood Loss: 20 cc
History and Indications for Procedure: 59-year-old male status post first stage of a planned two-stage basilic vein transposition, left upper extremity. He was brought to the operating room for stage II.
Procedure in Detail: Morro Irwin was correctly identified and placed supine on the operating table. After adequate induction of anesthesia the left arm was abducted 90 degrees and placed on the side table. A timeout procedure was performed with
the nursing and anesthesia staff confirming the patient's identity and the nature and laterality of the procedure. The basilic vein was marked in the upper arm with ultrasound guidance. The arm was then circumferentially prepped and draped in the
usual sterile fashion. We made an incision over the medial upper arm. The entire basilic vein was dissected with careful sharp dissection. All branches were ligated and divided between silk ties and metal clips. The vein was good caliber along the
entire course and had an excellent thrill. Once the entire vein had been carefully dissected we then created a gentle curved superficial tunnel lateral to the incision over the bicep with a tunneling clamp. Proximal control was obtained on the vein
with a small curved vascular clamp. The vein was marked and then transected towards the arterial anastomosis. The vein was then brought through the tunnel carefully. The two ends of the vein were anastomosed to one another in an end-to-end fashion
using a running 7-0 Prolene suture. At the completion of the anastomosis the clamp was released and flow restored through the fistula. There was an excellent thrill in the tunnel. The suture line was inspected for hemostasis and this was achieved.
The wound was irrigated with warm saline solution. Hemostasis was achieved in the wound bed. The wound was then closed in multiple layers and skin glue was applied. The patient had an easily palpable thrill in the tunnel and a palpable radial pulse
at the conclusion of the case.
Attestation: I was present and responsible for the entire procedure.
Signed:
Ibrahima Lopez III, MD
[facility] Vascular Surgery
[phone] (cell)
--- NOTE | 2025-04-13 16:02 | W.[place]-PDMP ---
[place]-PDMP
-
Checked the [place]- Prescription Drug Monitoring Program website, no red flags identified; safe to proceed with prescription.
--- NOTE | 2025-04-13 16:23 | W.SUR.POST ---
Surgical Immediate Post Op
Note
Pre Op Diagnosis: Renal Failure
Post Op Diagnosis: Renal Failure
Procedure Performed: Stage 2 basilic vein transposition
Primary Surgeon: Ibrahima Lopez III, MD
Secondary Surgeons: Adama Yin MD
Anesthesia: see anesthesia report
Estimated Blood Loss: 10 cc
Fluids: see anesthesia report
Drains/Shunts: none1
Specimens/Cultures: none
Doppler/Duplex/Angio (Y/N): N
Complications: none
Operative Findings: uncomplicated stage 2 BVT
[2025-04-13] MEDS: TYLENOL 650 MG PO (17:29)
== END 2025-04-13 18:35 | disposition home or self-care (01) ==
LOC: CATH 10:44
PROVIDERS: ATTENDING PHYSICIAN Surgery Vascular Surgery; PRIMARYCARE PHYSICIAN Nurse Practitioner
DX: Z49.01 Encounter for fitting and adjustment of extracorporeal dialysis catheter (principal); I12.0 Hypertensive chronic kidney disease with stage 5 chronic kidney disease or end stage renal disease; N18.5 Chronic kidney disease, stage 5; E78.5 Hyperlipidemia, unspecified; E03.9 Hypothyroidism, unspecified; Z79.899 Other long term (current) drug therapy; Z79.890 Hormone replacement therapy
CPT/HCPCS: 36832; 80048; 85027; 85610; 85730

== ENCOUNTER 2025-04-18 13:20 | Emergency (ER) | payer MEDICARE, MEDICAID, SELFPAY ==
[2025-04-18 13:37] VITALS: BP 168/86
--- NOTE | 2025-04-18 16:25 | ED.GENMED ---
History of Present Illness
General
Chief Complaint: Post Operative Problem(s)
Source: patient and family (Father)
Exam Limitations: none
Time Seen by Provider: 04/18/25 16:11
Nursing documentation reviewed up to this point in time: agreed with
History of Present Illness
History of Present Illness:
PPatient to ED wtih complaint of drainage from surgical incision left upper arm. He had a Stage [address] Gaitan on Saturday. Incision was closed with skin glue. Saturday pateint noticed clear drainage from distal end of incision.
Drainage continue. Brought to ED by father for eval. No fever/chills. No redness or pain. Small amt of serous drainage noted on 2x2 patient placedthis AM. No active drainage in ED.
Past History
Past History
ED Past Medical History: HTN, Hypercholesterolemia, IDDM and Other (Kidney stones, hypothyroidism, nephrostomy tubes)
ED Past Surgical History: Urological (nephrostomy tube placement)
Patient has exhibited threatening behavior?: No
Social History
Tobacco: Non-smoker
Alcohol: None
Drug: None
Review of Systems
Review of Systems
Allergies reviewed?: Yes
All Other Systems: ROS reviewed and negative except as documented in HPI and ROS
Constitutional: Reports no symptoms
EENT: Reports no symptoms
Respiratory: Reports no symptoms
Cardiac: Reports no symptoms
ABD/GI: Reports no symptoms
Musculoskeletal: Reports no symptoms
Skin: Reports other (Serous drainage from left upper arm incision)
Neurological: Reports no symptoms
Psychiatric: Reports no symptoms
Phy Exam
General Physical Exam
General Presentation: well appearing and no apparent distress
General age: appears stated age
General Skin: warm and dry
General Habitus: normal
Musculoskeletal Exam
Musculoskeletal Exam: full ROM and neuro vasc intact
Skin Exam
Skin Exam: normal color, warm/dry, no rash and other (Left upper arm incision with glue intact, skin edges together. No evidence of dehiscence. Small amt of serous drainage noted on 2x2 that patient placed this AM. NO pain at site. No erythema.
mild swelling surrounding incsion. Thrill present)
Psychiatric Exam
Psychiatric Exam: normal mood/affect
Course
Vital Signs
Initial and Last Documented VS:
Initial Vital Signs
Temp Pulse Resp BP Pulse Ox
98.4 F 84 18 168/86 100
04/18/25 13:37 04/18/25 13:37 04/18/25 13:37 04/18/25 13:37 04/18/25 13:37
Last Documented Vital Signs
Temp Pulse Resp BP Pulse Ox
98.4 F 84 18 168/86 100
04/18/25 13:37 04/18/25 13:37 04/18/25 13:37 04/18/25 13:37 04/18/25 13:37
*Pulse Oximetry
SaO2: 100
Oxygen Mode of Delivery: Room air
Patient hypoxic: no
*Critical Care Note
Total Time (30-74mins, 75-104mins- exclusive of procedures): Not Applicable
Update Note
Update Note:
Dr. Wills notified of pateint concern and findings on exam. WIll have patient follow up with Dr. Gaitan in office this week for surgical site check. No evidence of cellulitis, abscess formation. He remains afebrile. Given instructions on
s/s to return to ED and they are agreeable to plan
ED Attending Note
-
Portions of this chart may have been created with voice recognition software.� Occasional wrong word or��sound alike� substitutions may have occurred due to the inherent limitations of voice recognition software.
Discharge Plan
Departure
Patient Disposition: Home (Routine Discharge)
Date of Disposition: 04/18/25
Time of Disposition: 16:32
Patient with high blood pressure during this ER visit?: No
Condition: Good
Covid-19: Not Applicable
Discharge Problem:
Encounter for post surgical wound check
Instructions: General
Prescriptions:
No Action
levothyroxine 25 mcg Tablet
25 mcg PO DAILY AT 0700
atorvastatin 40 mg Tablet
40 mg PO DAILY
sodium bicarbonate 650 mg Tablet
650 mg PO TID Qty: 90 3RF
loperamide 2 mg Capsule
4 mg PO PRN PRN (Reason: diarrhea)
cyanocobalamin (vitamin B-12) 1,000 mcg Tablet
1,000 mcg PO DAILY Qty: 100 0RF
amlodipine 5 mg Tablet
5 mg PO DAILY
acetaminophen 500 mg Tablet
1,000 mg PO Q6H PRN (Reason: pain)
calcitriol 0.5 mcg Capsule
0.5 mcg PO DAILY
hydralazine 50 mg Tablet
50 mg PO BID
oxycodone 5 mg Tablet
5 mg PO Q6HPRN PRN (Reason: moderate pain) Qty: 7 0RF
Referrals:
Ibrahima Gaitan III, MD [Active, Vascular Surgery]
Referral Note: Call tomorrow to schedule a follow up appointment for this week.
Ibrahima Eubanks MD [Family Provider, Family Practice]
Activity Restrictions/Additional Instructions:
Call Dr. Gaitan in AM to schedule an appointment for this week. Return to the emergency department immediately for fever/chills, increasing pain, redness, swelling, drainage from site, or for any further concerns.
Interventions
Interventions:
*Risk Screen - Suicide Last Done: 04/18/25 13:37
*General Assessment Last Done: 04/18/25 13:37
*ED COVID-19 Vaccine History Last Done: 04/18/25 13:37
Discharge Date and Time
Print Language: WOLOF
== END 2025-04-18 16:50 | disposition home or self-care (01) ==
LOC: EMR 13:20
PROVIDERS: EMERGENCY PHYSICIAN Emergency Medicine; FAMILY PHYSICIAN Family Medicine
DX: Z48.01 Encounter for change or removal of surgical wound dressing (principal); I10 Essential (primary) hypertension; E78.00 Pure hypercholesterolemia, unspecified; E11.9 Type 2 diabetes mellitus without complications; E03.9 Hypothyroidism, unspecified; Z87.442 Personal history of urinary calculi
CPT/HCPCS: 99282

== ENCOUNTER → 2025-07-08 13:50 | Outpatient (REF) | payer MEDICARE, MEDICAID, SELFPAY ==
[2025-07-08 14:44] LABS: Hematocrit 24.7 % (39.0-52.0); Hemoglobin 8.1 g/dL (13.0-18.0); Mean Corp Hgb Conc. 32.8 g/dL (33.0-37.0); Mean Corpuscular Volume 85.2 fL (80.0-94.0); Platelet Count 268 10^3/uL (130-400); Red Cell Dist. Width 13.6 % (11.5-14.5)
== END ==
LOC: OIDL 13:50
PROVIDERS: ATTENDING PHYSICIAN Internal Medicine Hematology & Oncology; FAMILY PHYSICIAN Nurse Practitioner
DX: N18.5 Chronic kidney disease, stage 5 (principal)
CPT/HCPCS: 36415; 85025

== ENCOUNTER → 2025-07-28 14:20 | Outpatient (REF) | payer MEDICARE, MEDICAID, SELFPAY ==
[2025-07-28 14:56] LABS: Hematocrit 23.8 % (39.0-52.0); Hemoglobin 7.8 g/dL (13.0-18.0); Mean Corp Hgb Conc. 32.8 g/dL (33.0-37.0); Mean Corpuscular Volume 84.1 fL (80.0-94.0); Platelet Count 239 10^3/uL (130-400); Red Cell Dist. Width 14.3 % (11.5-14.5)
[2025-07-28 16:14] LABS: Iron 50 ug/dl (49-181)
[2025-07-28 16:24] LABS: Total Iron Binding Capacity 285 ug/dl (261-462)
[2025-07-28 16:49] LABS: Ferritin 57.3 ng/ml (17.9-464.0)
== END ==
LOC: OIDL 14:20
PROVIDERS: Nurse Practitioner Primary Care; ATTENDING PHYSICIAN Internal Medicine Hematology & Oncology; FAMILY PHYSICIAN Nurse Practitioner
DX: N18.5 Chronic kidney disease, stage 5 (principal)
CPT/HCPCS: 36415; 82728; 83540; 83550; 85025

== ENCOUNTER → 2025-08-04 14:08 | Outpatient (REF) | payer MEDICARE, MEDICAID, SELFPAY ==
[2025-08-04 14:18] LABS: Hematocrit 26.2 % (39.0-52.0); Hemoglobin 8.2 g/dL (13.0-18.0); Mean Corp Hgb Conc. 31.3 g/dL (33.0-37.0); Mean Corpuscular Volume 86.2 fL (80.0-94.0); Platelet Count 297 10^3/uL (130-400); Red Cell Dist. Width 15.1 % (11.5-14.5)
== END ==
LOC: CLAB 14:08
PROVIDERS: ATTENDING PHYSICIAN Internal Medicine Hematology & Oncology
DX: N18.5 Chronic kidney disease, stage 5 (principal)
CPT/HCPCS: 85025